=== PATIENT | female | born 1970 | race Caucasian/White ===

== ENCOUNTER 2020-09-14 09:57 | Outpatient (REF) | payer OTHER, SELFPAY ==
[2020-09-14 11:16] LABS: Anion Gap 11 (12-20); Blood Urea Nitrogen 10 mg/dL (9-16); Carbon Dioxide 27 mmol/L (22-29); Chloride 108 mmol/L (96-108); Estimated Glomerular Filt Rate > 60; Glucose Random 96 mg/dL (60-115); Potassium 4.2 mmol/L (3.3-5.1); Sodium 142 mmol/L (135-145)
[2020-09-14 11:26] LABS: T4 Thyroxine 7.9 ug/dL (4.5-12.0); Thyroid Stimulating Hormone 2.66 uIU/mL (0.32-4.0)
[2020-09-14 11:38] LABS: Erythrocyte Sedimentation Rate 3 MM/HR (0-20)
== END 2020-09-14 09:58 | disposition home or self-care (01) ==
LOC: HO.LAB 09:57
PROVIDERS: PCP Internal Medicine; Visit Provider Psychiatry & Neurology Neurology
DX: G43.909 Migraine, unspecified, not intractable, without status migrainosus (principal)
CPT/HCPCS: 36415; 80051; 82565; 82947; 84436; 84443; 84520; 85652

== ENCOUNTER 2021-02-05 13:12 | Outpatient (REF) | payer OTHER, SELFPAY ==
--- NOTE | ~2021-02-05 | XR_ITS ---
EXAMINATION: XR ANKLE, LEFT CLINICAL INFORMATION: Ligament sprain. COMPARISON: None TECHNIQUE: AP, lateral, and mortise views of the left ankle. FINDINGS: The bones and soft tissues are normal. No fracture. Alignment is anatomic. Joint spaces are maintained. No joint effusion. There is a small calcaneal heel enthesophyte. XR/XR ankle LT min 3V IMPRESSION: Small calcaneal enthesophyte. Otherwise unremarkable left ankle exam.
== END 2021-02-05 13:13 | disposition home or self-care (01) ==
LOC: HO.HMGCX 13:12
PROVIDERS: PCP Internal Medicine; Visit Provider Physician Assistant Medical
DX: Z13.89 Encounter for screening for other disorder (principal)
CPT/HCPCS: 73610

== ENCOUNTER 2021-03-30 10:04 | Outpatient (REF) | payer OTHER, SELFPAY ==
[2021-03-30 11:35] LABS: MANUAL DIFF FLAG NO
[2021-03-30 11:42] LABS: Basophils Percent Auto 0.2 % (0-2); Eosinophils Percent Auto 0.6 % (0-4); Hematocrit 44.3 % (37-47); Hemoglobin 14.6 g/dl (12.0-16.0); Imm Gran Abs Auto 0.01 X10*3/uL (0.00-0.03); Imm Gran Pct Auto 0.2 % (0.0-0.4); Lymphocytes Absolute Auto 1.2 X10*3/uL (1.2-4.9); Lymphocytes Percent Auto 23.9 % (20-40); Mean Corpuscular Hemoglobin 29.6 pg (27.0-33.0); Mean Corpuscular Volume 89.9 fL (80-98); Mean Platelet Volume 11.6 fL (9.4-12.3); Monocytes Absolute Auto 0.5 X10*3/uL (0.1-1.2); Monocytes Percent Auto 9.5 % (2-11); Neutrophils Absolute Auto 3.4 X10*3/uL (2.0-8.3); Neutrophils Percent Auto 65.6 % (45-73); Platelet Count 201 X10*3/uL (160-400); Red Blood Count 4.93 X10*6/uL (4.20-5.50); Red Cell Distribution Width 12.6 % (11.0-16.0); White Blood Count 5.1 X10*3/uL (4.8-10.8)
== END 2021-03-30 10:05 | disposition home or self-care (01) ==
LOC: HO.LAB 10:04
PROVIDERS: PCP Internal Medicine; Visit Provider Internal Medicine Pulmonary Disease
DX: J45.909 Unspecified asthma, uncomplicated (principal); Z91.09 Other allergy status, other than to drugs and biological substances
CPT/HCPCS: 36415; 82785; 85025; 86003; 99202

== ENCOUNTER 2021-04-14 07:34 | Outpatient (REF) | payer OTHER, SELFPAY ==
--- NOTE | 2021-04-14 17:06 | PFT_ITS ---
INDICATION: Asthma. SPIROMETRY: The FEV1 to FVC 88% with an FEV1 of 3.6 L, which is 122% predicted and an FVC of 110% predicted. No significant response to bronchodilators noted. Maximum voluntary ventilation 179% predicted. LUNG VOLUMES: Total lung capacity 111% predicted. DIFFUSION CAPACITY: DLCO 92% predicted. Flow volume loop appears to be normal. COMPARISONS: None. INTERPRETATION: No obstructive nor restrictive ventilatory defects identified. No significant response to bronchodilators noted. Normal lung volumes. Normal maximum voluntary ventilation. Normal diffusion capacity. These are consistent with normal lung mechanics. If asthma is in the differential, methacholine challenge may be helpful in assessing for hyper-reactive airways, otherwise clinical correlation warranted. Blake Dee MD MR/MODL / [id number]
== END 2021-04-14 07:35 | disposition home or self-care (01) ==
LOC: HO.RESP 07:34
PROVIDERS: PCP Internal Medicine; Visit Provider Internal Medicine Pulmonary Disease
DX: J45.909 Unspecified asthma, uncomplicated (principal)
CPT/HCPCS: 94060; 94727; 94729

== ENCOUNTER → 2021-04-26 09:48 | Outpatient (BNVA) | payer OTHER, SELFPAY | PROVIDERS: PCP Internal Medicine; Visit Provider Internal Medicine Pulmonary Disease | DX: J45.909 Unspecified asthma, uncomplicated (principal) | CPT/HCPCS: 99212 ==

== ENCOUNTER 2021-10-10 04:26 | Emergency (ER) | payer OTHER, SELFPAY ==
[2021-10-10 04:44] VITALS: BP 187/96; PULSE 110; RESP 20; TEMP 36.4; O2SAT 98; BMI 21.4
[2021-10-10 04:45] VITALS: BP 165/94; PULSE 98; RESP 18; TEMP 37.1; O2SAT 100
--- NOTE | 2021-10-10 05:24 | ED.GENADULT ---
HPI - General Adult General Chief complaint: Skin/Abscess/Foreign Body Stated complaint: L leg pain, abnormal spot on leg Time Seen by Provider: 10/10/21 05:24 Source: patient and family (Mother) Mode of arrival: ambulatory History of Present Illness HPI narrative: 51-year-old female who presents with significant concerns regarding ?bugs, parasites? in her house that she states she is concerned have infected her. She describes tingling and crawling as well as sometimes itching in her scalp in her ears and her butt. Patient also complaints of squirrels as well as neighbors. She states she is currently being seen by a therapist. Related Data Home Medications Medication Instructions Recorded Confirmed norethindrone 1 mg-ethinyl 1 tab PO DAILY 04/19/20 08/04/21 estradiol 10 mcg (24)-iron 10 mcg(2) tablet (Lo Loestrin Fe) ondansetron HCl 4 mg tablet 4 mg PO Q8H 04/19/20 08/04/21 polyethylene glycol 3350 17 17 g PO DAILY 04/19/20 08/04/21 gram/dose oral powder (Miralax) sumatriptan succinate 100 mg tablet See Rx Instructions PO .COMPLEX 04/19/20 08/04/21 dextroamphetamine-amphetamine ER 60 mg PO DAILY cap 02/01/21 08/04/21 20 mg 24hr capsule,extend release diclofenac sodium 1 % topical gel 2 g TOPICAL QID 04/01/21 08/04/21 (Arthritis Pain (diclofenac)) Previous Rx's Medication Instructions Recorded triamcinolone acetonide 0.1 % 1 appl TOPICAL TID #454 g 08/19/21 topical cream Allergies Allergy/AdvReac Type Severity Reaction Status Date / Time No Known Allergies Allergy Verified 10/10/21 04:49 Review of Systems Review of Systems: Pertinent positives and negatives as stated in HPI 10 point review of systems is otherwise negative. [facility] Past Medical History Source: nursing notes reviewed Medical History Annual physical exam Anxiety Asthma Attention deficit hyperactivity disorder Degenerative disc disease, lumbar Depression Eczema Hypoglycemia Irritable bowel syndrome with constipation Left ankle swelling Migraine Normal Pap smear PTSD (post-traumatic stress disorder) Rash Vitamin B12 deficiency Vitamin D deficiency Surgical History H/O colonoscopy History of tonsillectomy Family History Family History Father No problems noted. Mother No problems noted. Social History Social History Household Members Other:: lives with children 17 and 21-year-old, on disability for PTSD Housing: Apartment Patient Tobacco Use Status: Never used Tobacco e-Cigarette/Vaping Use: Never Used Advance Directives: No Patient : No Current occupational status: disabled Physical Exam ED Vital Signs: Vital Signs - 24 hr 10/10/21 04:44 10/10/21 04:45 Temperature 97.6 F 98.8 F Pulse Rate 110 H 98 Respiratory Rate 20 18 Blood Pressure 187/96 H 165/94 H Pulse Oximetry 98 100 BMI result Body Mass Index 21.4 VITAL SIGNS: Reviewed. GENERAL: Well developed, well nourished, anxiety distress. HEAD: Normocephalic/atraumatic EYES: PERRLA, EOMI EARS: Ext canals without abnormality OROPHARYNX: no oral lesions noted, posterior pharynx clear and non-erythematous without noted tonsillar enlargement/erythema/exudates NECK: Supple, no adenopathy LUNGS: Normal breath sounds. No adventitious sounds or accessory muscle use. SpO2<98> CARDIOVASCULAR: Regular rate and rhythm without noted murmurs ABDOMEN: Soft, non-tender, non-distended with bowel sounds. MUSCULOSKELETAL: No tenderness, deformities, or effusions noted on gross inspection. EXTREMITIES: No cyanosis, clubbing or edema multiple, multiple scratch like abrasions to extremities without evidence of erythema/induration/bleeding SKIN: Inspection of the skin reveals no rashes NEUROLOGIC: Alert and oriented x 4. Strength and sensation to light touch were grossly intact x 4. Course Course Course Narrative: 51-year-old female with history and clinical presentation consistent with anxiety and had a concerned regarding bugs within her home, but then states that she does not want to inform her landlord, she denies any suicidal homicidal ideation. She continues to insist that she has bug bites that have infected her and that they are inside of her body. There is no evidence of such an infestation at this time. Thankfully the mother is at bedside and is actively involved with the daughter, but the daughter really is not listening to either her mother or myself and is struggling with bleeding that there is a solution to her concerns regarding the bugs. She is not suicidal or homicidal and denies hearing any voices. Patient is otherwise discharged home in stable condition, and her mother states that she will take care of things and they both understand that they should follow up with the primary care provider in the morning and pursue contact with extermination services as well as notifying the landlord. Discharge Plan Discharge Clinical Impression: Paresthesias Patient Disposition: Home, Self-Care Additional Instructions: 1. Resume all home medications as prescribed. 2. I strongly recommend that you consider discussion with the health department regarding your concerns about your living condition. 3. Please consider discussion with your therapist regarding side effects from the medications that you are on as well. 4. Below is a list of a recommendations for testing for your concerns regarding worms and parasites that you can discuss with your primary care provider. Stool Sample for ova and parasite SerologyThis test is used to look for antibodies or for parasite antigens produced when the body is infected with a parasite and the immune system is trying to fight off the invader.This test is done by your health care provider taking a blood sample and sending it to a lab. Blood smearThis test is used to look for parasites that are found in the blood. By looking at a blood smear under a microscope, parasitic diseases such as filariasis, malaria, or babesiosis, can be diagnosed.This test is done by placing a drop of blood on a microscope slide. The slide is then stained and examined under a microscope. Return to the ER for worsening symptoms. Prescriptions: No Action triamcinolone acetonide 0.1 % cream 1 appl topical TID Qty: 454 4RF polyethylene glycol 3350 [Miralax] 17 gram/dose powder 17 g PO DAILY 0RF sumatriptan succinate 100 mg tablet See Rx Instructions PO .COMPLEX 0RF Rx Instructions: take 1 tab at onset of headache; if no relief, may repeat 1 tab after at least 2 hrs; max = 2 tabs/24 hrs PO Lo Loestrin Fe 1 mg-10 mcg (24)/10 mcg (2) tablet 1 tab PO DAILY 0RF ondansetron HCl 4 mg tablet 4 mg PO Q8H 0RF dextroamphetamine-amphetamine 20 mg capsule,extended release 24hr 60 mg PO DAILY 0RF diclofenac sodium [Arthritis Pain (diclofenac)] 1 % gel 2 g topical QID 0RF Rx Instructions: apply to single elbow, wrist or hand; for hand includes palm/fingers/back of hand Interventions: ED Discharge Assessment Last Done: 10/10/21 06:34 Discharge Date/Time: 10/10/21 06:34
== END 2021-10-10 06:34 | disposition home or self-care (01) ==
PROVIDERS: Emergency Provider Student in an Organized Health Care Education/Training Program
DX: R20.2 Paresthesia of skin (principal)
CPT/HCPCS: 99282; 99283

== ENCOUNTER 2022-02-07 12:14 | Outpatient (REF) | payer OTHER, SELFPAY ==
[2022-02-07 12:28] LABS: MANUAL DIFF FLAG NO
[2022-02-07 12:46] LABS: Basophils Percent Auto 0.7 % (0-2); Eosinophils Absolute Auto 0.1 X10*3/uL (0.0-0.4); Eosinophils Percent Auto 1.2 % (0-4); Hematocrit 43.3 % (37.0-47.0); Hemoglobin 14.7 g/dl (12.0-16.0); Imm Gran Abs Auto 0.03 X10*3/uL (0.00-0.03); Imm Gran Pct Auto 0.7 % (0.0-0.4); Lymphocytes Absolute Auto 1.1 X10*3/uL (1.2-4.9); Lymphocytes Percent Auto 25.9 % (20-40); Mean Corpuscular HGB Conc 33.9 g/dl (31.0-35.0); Mean Corpuscular Hemoglobin 29.9 pg (27.0-33.0); Mean Corpuscular Volume 88.2 fL (80.0-98.0); Mean Platelet Volume 11.1 fL (9.4-12.3); Monocytes Absolute Auto 0.4 X10*3/uL (0.1-1.2); Monocytes Percent Auto 9.4 % (2-11); Neutrophils Absolute Auto 2.6 x10*3/uL (2.0-8.3); Neutrophils Percent Auto 62.1 % (45-73); Platelet Count 165 X10*3/uL (160-400); Red Blood Count 4.91 X10*6/uL (4.20-5.50); Red Cell Distribution Width 12.8 % (11.0-16.0); White Blood Count 4.3 X10*3/uL (4.8-10.8)
== END 2022-02-07 12:15 | disposition home or self-care (01) ==
LOC: HO.LAB 12:14
PROVIDERS: PCP Internal Medicine; Visit Provider Internal Medicine Pulmonary Disease
DX: Z91.09 Other allergy status, other than to drugs and biological substances (principal); R05.9 Cough, unspecified
CPT/HCPCS: 36415; 82785; 85025; 86003; 99212

== ENCOUNTER 2022-02-27 15:26 | Outpatient (REF) | payer OTHER, SELFPAY ==
--- NOTE | 2022-02-27 17:22 | PFT_ITS ---
BASE LINE SPIROMETRY : Forced vital capacity 108%, FEV1 117%, [id number] 155%. The spirometry findings are normal. No evidence of obstructive airway disorder. Resting O2 saturation was normal. MD TYSON Gregorio/CADY / [id number] MTDD
== END 2022-02-27 15:27 | disposition home or self-care (01) ==
LOC: HO.RESP 15:26
PROVIDERS: PCP Internal Medicine; Visit Provider Internal Medicine Pulmonary Disease
DX: R05.9 Cough, unspecified (principal)
CPT/HCPCS: 94070; J7674

== ENCOUNTER → 2022-03-10 09:49 | Outpatient (BNVA) | payer OTHER, SELFPAY | PROVIDERS: PCP Internal Medicine; Visit Provider Internal Medicine Pulmonary Disease | DX: R05.9 Cough, unspecified (principal) | CPT/HCPCS: 99212 ==

== ENCOUNTER 2022-03-15 12:26 | Outpatient (REF) | payer OTHER, SELFPAY ==
--- NOTE | ~2022-03-15 | XR_ITS ---
EXAMINATION: XR HAND, RIGHT CLINICAL INFORMATION: Pain COMPARISON: None TECHNIQUE: PA, lateral, and oblique views of the right hand. FINDINGS: No acute fracture or dislocation. Small marginal osteophytes of the first metacarpophalangeal joint. There are calcifications along the medial aspect of the fifth metacarpal phalangeal joint, likely chronic and degenerative in nature. No radiopaque foreign bodies. XR/XR hand RT min 3V IMPRESSION: No acute fracture or dislocation. Degenerative changes as described.
== END 2022-03-15 12:27 | disposition home or self-care (01) ==
LOC: HO.HMGCX 12:26
PROVIDERS: PCP Internal Medicine; Visit Provider Nurse Practitioner Family
DX: M79.641 Pain in right hand (principal)
CPT/HCPCS: 73130

== ENCOUNTER → 2022-03-29 09:12 | Outpatient (BNVA) | payer OTHER, SELFPAY | PROVIDERS: PCP Internal Medicine; Visit Provider Student in an Organized Health Care Education/Training Program | DX: M25.541 Pain in joints of right hand (principal); M79.641 Pain in right hand; M25.441 Effusion, right hand; R59.1 Generalized enlarged lymph nodes; R53.83 Other fatigue; M76.62 Achilles tendinitis, left leg | CPT/HCPCS: 99202 ==

== ENCOUNTER 2022-03-29 10:42 | Outpatient (REF) | payer OTHER, SELFPAY ==
[2022-03-29 13:35] LABS: MANUAL DIFF FLAG NO
[2022-03-29 13:44] LABS: Basophils Percent Auto 0.4 % (0-2); Eosinophils Absolute Auto 0.1 X10*3/uL (0.0-0.4); Eosinophils Percent Auto 1.2 % (0-4); Hematocrit 42.4 % (37.0-47.0); Hemoglobin 14.4 g/dl (12.0-16.0); Imm Gran Abs Auto 0.01 X10*3/uL (0.00-0.03); Imm Gran Pct Auto 0.2 % (0.0-0.4); Lymphocytes Absolute Auto 1.1 X10*3/uL (1.2-4.9); Lymphocytes Percent Auto 20.8 % (20-40); Mean Corpuscular Hemoglobin 30.1 pg (27.0-33.0); Mean Corpuscular Volume 88.5 fL (80.0-98.0); Mean Platelet Volume 11.8 fL (9.4-12.3); Monocytes Absolute Auto 0.4 X10*3/uL (0.1-1.2); Monocytes Percent Auto 7.3 % (2-11); Neutrophils Absolute Auto 3.6 x10*3/uL (2.0-8.3); Neutrophils Percent Auto 70.1 % (45-73); Platelet Count 178 X10*3/uL (160-400); Red Blood Count 4.79 X10*6/uL (4.20-5.50); Red Cell Distribution Width 12.6 % (11.0-16.0); White Blood Count 5.1 X10*3/uL (4.8-10.8)
[2022-03-29 14:01] LABS: Alanine Aminotransferase 18 U/L (0-31); Albumin Level 4.3 g/dL (3.5-5.0); Alkaline Phosphatase 93 U/L (39-117); Anion Gap 14 (12-20); Aspartate Amino Transferase 14 U/L (5-31); Bilirubin Total 0.5 mg/dL (0.0-1.0); Blood Urea Nitrogen 9 mg/dL (9-16); Calcium 9.6 mg/dL (8.4-10.2); Carbon Dioxide 28 mmol/L (22-29); Chloride 104 mmol/L (96-108); Estimated Glomerular Filt Rate > 60; Glucose Random 106 mg/dL (60-115); Potassium 4.6 mmol/L (3.3-5.1); Rheumatoid Factor < 15.0 IU/mL (<15.0); Sodium 141 mmol/L (135-145); Total Protein 6.9 g/dL (6.5-8.0); Uric Acid 3.8 mg/dL (2.4-5.7)
[2022-03-29 14:22] LABS: Thyroid Stimulating Hormone 3.65 uIU/mL (0.32-4.0)
[2022-04-01 23:11] LABS: Prot Elec - Alpha1 0.3 g/dL (0.2-0.3); Prot Elec - Alpha2 0.7 g/dL (0.5-0.9); Prot Elec - Beta 1 0.4 g/dL (0.4-0.6); Prot Elec - Beta 2 0.4 g/dL (0.2-0.5); Prot Elec - Gamma 0.8 g/dL (0.8-1.7); Prot Elec - Total Protein 6.6 g/dL (6.1-8.1)
[2022-04-03 11:56] LABS: HLA B27 Negative (Negative)
[2022-04-03 13:06] LABS: IgA 251 mg/dL (47-310); IgG 941 mg/dL (600-1640); IgM 57 mg/dL (50-300)
[2022-04-03 14:06] LABS: Vitamin D 25-OH, D2 <4 ng/mL; Vitamin D 25-OH, D3 39 ng/mL; Vitamin D 25-OH, Total 39 ng/mL (30-100)
[2022-04-03 17:26] LABS: Cyclic Citrullinated Peptide <16 UNITS
== END 2022-03-29 10:43 | disposition home or self-care (01) ==
LOC: HO.10HDL 10:42
PROVIDERS: Visit Provider Student in an Organized Health Care Education/Training Program
DX: Z13.21 Encounter for screening for nutritional disorder (principal); M25.541 Pain in joints of right hand; M76.62 Achilles tendinitis, left leg; R59.1 Generalized enlarged lymph nodes; R53.83 Other fatigue; R53.1 Weakness
CPT/HCPCS: 36415; 80053; 82306; 82550; 82784; 84165; 84443; 84550; 85025; 86200; 86334; 86431; 86812

== ENCOUNTER 2022-04-14 08:08 | Outpatient (REF) | payer OTHER, SELFPAY ==
--- NOTE | ~2022-04-14 | MR_ITS ---
EXAMINATION: MRI HAND WITHOUT CONTRAST, RIGHT CLINICAL INFORMATION: Right hand pain and swelling. COMPARISON: Right hand radiographs dated 03/15/2022. TECHNIQUE: Multisequence MR imaging of the right hand was obtained without contrast on a high-field strength scanner. FINDINGS: BONE: Increased T2 signal within the distal aspect of the 5th metatarsal as well as within the adjacent 5th proximal phalangeal base. No associated decreased T1 signal. No osseous erosion. No fracture or dislocation. Grossly intact articular cartilage. MUSCLES/TENDONS: The visualized flexor and extensor tendons are intact. Mild fluid within the 5th flexor digitorum tendon sheath consistent mild tenosynovitis. LIGAMENTS: Abnormal signal within the radial and ulnar collateral ligaments at the 5th metacarpophalangeal joint with probable attenuation. SOFT TISSUES: Fifth metacarpophalangeal joint effusion with circumferential soft tissue edema. MR/MR hand RT wo con IMPRESSION: Fifth metacarpal phalangeal joint effusion with marrow edema in the 5th metacarpal head and base of the fifth proximal phalanx as well as circumferential soft tissue edema. Additionally there is attenuation and abnormal signal of the collateral ligaments. Findings could represent an infectious or inflammatory arthropathy. Small calcifications on the prior radiographs could indicate gout arthritis in the appropriate setting. Alternatively, findings could indicate posttraumatic changes in the setting of recent injury. Mild 5th flexor tenosynovitis without a transverse tendon tear or tendon retraction.
== END 2022-04-14 08:09 | disposition home or self-care (01) ==
LOC: HO.MRI 08:08
PROVIDERS: Visit Provider Student in an Organized Health Care Education/Training Program
DX: M25.541 Pain in joints of right hand (principal)
CPT/HCPCS: 73218

== ENCOUNTER → 2022-04-19 09:07 | Outpatient (BNVA) | payer OTHER, SELFPAY | PROVIDERS: PCP Internal Medicine; Visit Provider Student in an Organized Health Care Education/Training Program | DX: L40.50 Arthropathic psoriasis, unspecified (principal); R59.1 Generalized enlarged lymph nodes | CPT/HCPCS: 99212 ==

== ENCOUNTER 2022-04-20 11:32 | Outpatient (REF) | payer OTHER, SELFPAY ==
--- NOTE | ~2022-04-20 | XR_ITS ---
EXAMINATION: XR SACROILIAC JOINTS CLINICAL INFORMATION: Low back pain and left hand pain COMPARISON: None TECHNIQUE: 3 views of the sacroiliac joints. Left hand 4 views FINDINGS: SI joints no visible fracture, dislocation or bony abnormality. The SI joints are symmetrical. There are 2 cages at the L5-S1 disc level for fusion. No aggressive lytic or sclerotic process seen involving the pelvic bones. Left hand/wrist: There is no visible fracture, dislocation or subluxation. No bony erosive changes. The soft tissues are normal. XR/XR sacroiliac joint min 3V IMPRESSION: 1. Unremarkable SI joints. 2. There are 2 cages at the L5-S1 disc level for fusion. 3. Unremarkable left hand/wrist exam
--- NOTE | ~2022-04-20 | XR_ITS ---
EXAMINATION: XR SACROILIAC JOINTS CLINICAL INFORMATION: Low back pain and left hand pain COMPARISON: None TECHNIQUE: 3 views of the sacroiliac joints. Left hand 4 views FINDINGS: SI joints no visible fracture, dislocation or bony abnormality. The SI joints are symmetrical. There are 2 cages at the L5-S1 disc level for fusion. No aggressive lytic or sclerotic process seen involving the pelvic bones. Left hand/wrist: There is no visible fracture, dislocation or subluxation. No bony erosive changes. The soft tissues are normal. XR/XR hand wrist LT IMPRESSION: 1. Unremarkable SI joints. 2. There are 2 cages at the L5-S1 disc level for fusion. 3. Unremarkable left hand/wrist exam
[2022-04-20 12:32] LABS: MANUAL DIFF FLAG NO
[2022-04-20 12:52] LABS: Basophils Percent Auto 0.1 % (0-2); Hemoglobin 15.9 g/dl (12.0-16.0); Imm Gran Abs Auto 0.03 X10*3/uL (0.00-0.03); Imm Gran Pct Auto 0.3 % (0.0-0.4); Lymphocytes Absolute Auto 0.7 X10*3/uL (1.2-4.9); Lymphocytes Percent Auto 7.4 % (20-40); Mean Corpuscular HGB Conc 34.6 g/dl (31.0-35.0); Mean Corpuscular Hemoglobin 30.2 pg (27.0-33.0); Mean Corpuscular Volume 87.5 fL (80.0-98.0); Monocytes Absolute Auto 0.5 X10*3/uL (0.1-1.2); Monocytes Percent Auto 5.4 % (2-11); Neutrophils Absolute Auto 7.9 x10*3/uL (2.0-8.3); Neutrophils Percent Auto 86.8 % (45-73); Platelet Count 197 X10*3/uL (160-400); Red Blood Count 5.26 X10*6/uL (4.20-5.50); Red Cell Distribution Width 12.4 % (11.0-16.0); White Blood Count 9.1 X10*3/uL (4.8-10.8)
[2022-04-20 13:31] LABS: Alanine Aminotransferase 17 U/L (0-31); Albumin Level 4.8 g/dL (3.5-5.0); Alkaline Phosphatase 99 U/L (39-117); Anion Gap 16 (12-20); Aspartate Amino Transferase 14 U/L (5-31); Bilirubin Total 0.8 mg/dL (0.0-1.0); Blood Urea Nitrogen 12 mg/dL (9-16); C Reactive Protein 0.12 mg/dL (< or = 0.50); Calcium 10.3 mg/dL (8.4-10.2); Carbon Dioxide 26 mmol/L (22-29); Chloride 103 mmol/L (96-108); Estimated Glomerular Filt Rate > 60; Glucose Random 101 mg/dL (60-115); Potassium 4.3 mmol/L (3.3-5.1); Sodium 141 mmol/L (135-145); Total Protein 7.7 g/dL (6.5-8.0)
[2022-04-20 13:39] LABS: Erythrocyte Sedimentation Rate 4 MM/HR (0-20)
[2022-04-21 08:29] LABS: HBS Num1 128.91 mIU/mL (0-7.99); HBc Num1 0.08 S/CO (0.00-0.79); HBsAGNum1 0.23 S/CO (0.00-0.99); HIV AB/AG Nonreactive (Nonreactive); HIV Num 1 0.08 S/CO (0.00-0.99); Hepatitis A Antibody IgM 0.22 Index (0-0.79); Hepatitis B Core Antibody Nonreactive (Nonreactive); Hepatitis B Surface Antigen Negative (Negative); ~HepC Num1 0.18 S/CO (0.00-0.79); ~Hepatitis A Antibody IgM Nonreactive (Nonreactive); ~Hepatitis B Surface Antibody REACTIVE (Nonreactive); ~Hepatitis C Antibody Nonreactive (Nonreactive)
[2022-04-23 00:47] LABS: TS Negative Control Passed; TS Panel A 6; TS Panel B 7; TS Positive Control Passed; TSpotTB Borderline (Negative)
[2022-04-24 18:16] LABS: Immunoglobulin E 11 kU/L (<OR=114)
[2022-04-25 12:06] LABS: Anti Nuclear Antibody Screen NEGATIVE (NEGATIVE)
== END 2022-04-20 11:33 | disposition home or self-care (01) ==
LOC: HO.XRAY 11:32
PROVIDERS: Internal Medicine Pulmonary Disease; PCP Internal Medicine; Visit Provider Student in an Organized Health Care Education/Training Program
DX: M54.50 Low back pain, unspecified (principal); M25.541 Pain in joints of right hand; L40.50 Arthropathic psoriasis, unspecified; Z91.09 Other allergy status, other than to drugs and biological substances; Z11.59 Encounter for screening for other viral diseases; Z11.4 Encounter for screening for human immunodeficiency virus [HIV]; Z11.7 Encounter for testing for latent tuberculosis infection
CPT/HCPCS: 36415; 72202; 73110; 73130; 80053; 82785; 85025; 85652; 86038; 86039; 86140; 86481; 86704; 86706; 86709; 86803; 87340; 87389

== ENCOUNTER → 2022-05-19 10:16 | Outpatient (BNVA) | payer OTHER, SELFPAY | PROVIDERS: PCP Internal Medicine; Referring Provider Internal Medicine; Visit Provider Student in an Organized Health Care Education/Training Program | DX: L40.50 Arthropathic psoriasis, unspecified (principal); M79.7 Fibromyalgia | CPT/HCPCS: 99212 ==

== ENCOUNTER 2022-07-18 09:41 | Outpatient (REF) | payer OTHER, SELFPAY ==
--- NOTE | ~2022-07-18 | XR_ITS ---
EXAMINATION: XR HIPS, BILATERAL CLINICAL INFORMATION: Arthritis COMPARISON: SI joints 04/20/2022, CT pelvis 01/24/2017. TECHNIQUE: Each hip is imaged in AP and frog-lateral projections. There are a total of 4 views. FINDINGS: Right: Normal bony mineralization. No fracture, dislocation, destructive process, or arthropathy. No erosive change or chondrocalcinosis. Left: Normal bony mineralization. No fracture, dislocation, destructive process, or arthropathy. No erosive change or chondrocalcinosis. Other: Visualized SI joints are unremarkable. Mild spurring superior pubis, stable. Small benign chronic sclerotic lesion proximal inferior left pubic ramus stable from CT 2017. XR/XR hips CHAVA min 3V IMPRESSION: Unremarkable bilateral hips.
--- NOTE | ~2022-07-18 | XR_ITS ---
EXAMINATION: XR LUMBOSACRAL SPINE CLINICAL INFORMATION: Arthritis COMPARISON: None TECHNIQUE: Three views of the lumbosacral spine. FINDINGS: Interbody fusion cages x2 L5 and S1 appears satisfactory. No subluxation. Mild degenerative disc space narrowing at L4-L5. Generalized endplate spurring. No fracture. No focal lesion. XR/XR lumbar spine 2-3V IMPRESSION: Satisfactory fusion hardware. Mild degenerative disc disease at L4-L5.
[2022-07-18 10:46] LABS: MANUAL DIFF FLAG NO
[2022-07-18 11:10] LABS: Basophils Percent Auto 0.5 % (0-2); Eosinophils Percent Auto 0.7 % (0-4); Hematocrit 40.7 % (37.0-47.0); Hemoglobin 13.8 g/dl (12.0-16.0); Imm Gran Abs Auto 0.03 X10*3/uL (0.00-0.03); Imm Gran Pct Auto 0.7 % (0.0-0.4); Lymphocytes Absolute Auto 0.9 X10*3/uL (1.2-4.9); Lymphocytes Percent Auto 22.9 % (20-40); Mean Corpuscular HGB Conc 33.9 g/dl (31.0-35.0); Mean Corpuscular Hemoglobin 30.7 pg (27.0-33.0); Mean Corpuscular Volume 90.4 fL (80.0-98.0); Mean Platelet Volume 11.7 fL (9.4-12.3); Monocytes Absolute Auto 0.4 X10*3/uL (0.1-1.2); Monocytes Percent Auto 10.5 % (2-11); Neutrophils Absolute Auto 2.6 x10*3/uL (2.0-8.3); Neutrophils Percent Auto 64.7 % (45-73); Platelet Count 145 X10*3/uL (160-400); Red Cell Distribution Width 13.2 % (11.0-16.0)
[2022-07-18 11:39] LABS: Erythrocyte Sedimentation Rate 2 MM/HR (0-20)
== END 2022-07-18 09:42 | disposition home or self-care (01) ==
LOC: HO.XRAY 09:41
PROVIDERS: PCP Internal Medicine; Visit Provider Psychiatry & Neurology Neurology
DX: M19.90 Unspecified osteoarthritis, unspecified site (principal); M79.7 Fibromyalgia
CPT/HCPCS: 36415; 72100; 73522; 85025; 85652

== ENCOUNTER 2022-10-24 01:30 | Emergency (ER) | payer OTHER, SELFPAY ==
--- NOTE | ~2022-10-24 | US_ITS ---
EXAMINATION: US ABDOMEN LIMITED CLINICAL INFORMATION: Right upper quadrant pain with history of gallstones. COMPARISON: CT 01/24/2017 TECHNIQUE: Real-time imaging of the right upper quadrant abdominal viscera. FINDINGS: PANCREAS: The visualized proximal portion of the pancreas is unremarkable. The distal portion is obscured secondary to overlying bowel gas. LIVER: The liver is normal in size. The liver contour is normal. Parenchymal echogenicity is normal. No focal hepatic lesion. There is no intrahepatic biliary duct dilatation seen. GALLBLADDER: There are 2 prominent gallstones identified, measuring up to 2.3 cm and 2.5 cm. Small amount of gallbladder debris is also noted. Gallbladder wall thickness is at the upper limits of normal. No appreciable pericholecystic fluid. Right upper quadrant tenderness was reported during the exam. COMMON BILE DUCT: Normal in caliber measuring 0.2 cm in diameter. RIGHT KIDNEY: No hydronephrosis. No renal calculi or focal parenchymal lesions. The kidney measures 11.4 cm in maximum dimension. FREE FLUID: None. US/US abdomen limited IMPRESSION: Cholelithiasis. Though there is no significant wall thickening or pericholecystic fluid, right upper quadrant tenderness was reported during the exam. If there is clinical concern for acute cholecystitis, assessment with nuclear medicine hepatobiliary scan may be helpful.
[2022-10-24 02:02] VITALS: BP 128/89; PULSE 83; RESP 18; TEMP 36.6; O2SAT 98; BMI 21.6
--- NOTE | 2022-10-24 02:16 | ED.ABDPAIN ---
HPI - Abdominal Pain General Chief Complaint: Abdominal Pain Stated Complaint: gallstones Time Seen by Provider: 10/24/22 02:15 Source: patient Mode of arrival: ambulatory Limitations: no limitations History of Present Illness HPI narrative: Patient with History of gallstone with no significant pain in the past noticed pain in the right upper and right flank area since yesterday evening after supper with nausea no fever no chills no urinary complaints patient had gallstone but they are large in size and ever had any problems Related Data Home Medications Medication Instructions Recorded Confirmed norethindrone 1 mg-ethinyl 1 tab PO DAILY 04/19/20 05/19/22 estradiol 10 mcg (24)-iron 10 mcg(2) tablet (Lo Loestrin Fe) sumatriptan succinate 100 mg tablet See Rx Instructions PO .COMPLEX 04/19/20 05/19/22 dextroamphetamine-amphetamine ER 60 mg PO DAILY 02/01/21 05/19/22 20 mg 24hr capsule,extend release diclofenac sodium 1 % topical gel 2 g topical QID 04/01/21 05/19/22 (Arthritis Pain (diclofenac)) ondansetron HCl 4 mg tablet 4 mg PO Q8H PRN 03/29/22 05/19/22 Previous Rx's Medication Instructions Recorded sulfasalazine 500 mg tablet 0.5 g PO .COMPLEX #120 tabs 05/19/22 meloxicam 15 mg tablet 15 mg PO DAILY #30 tabs 07/21/22 ondansetron 4 mg disintegrating 4 mg PO Q6-8H PRN nausea and 10/24/22 tablet vomiting #7 tabs oxycodone 5 mg tablet 5 mg PO Q6H PRN pain #20 tabs 10/24/22 Allergies Allergy/AdvReac Type Severity Reaction Status Date / Time morphine Allergy itchy Verified 10/24/22 02:07 Review of Systems Review of Systems Yes all other systems are reviewed and are negative PMFSH Past Medical History Medical History Annual physical exam Anxiety Attention deficit hyperactivity disorder Degenerative disc disease, lumbar Depression Eczema Hypoglycemia Irritable bowel syndrome with constipation Left ankle swelling Migraine Normal Pap smear PTSD (post-traumatic stress disorder) Rash Vitamin B12 deficiency Vitamin D deficiency Surgical History H/O colonoscopy History of tonsillectomy Family History Family History Father No problems noted. Mother No problems noted. Social History Social History Household Members Other:: lives with children 17 and 21-year-old, on disability for PTSD Housing: Apartment Patient Tobacco Use Status: Never used Tobacco e-Cigarette/Vaping Use: Never Used Advance Directives: No Advance Directives Information Provided: Yes Current occupational status: disabled Cognitive needs: No Hearing needs: No Vision needs: Yes Physical Exam ED Vital Signs: Vital Signs - 24 hr 10/24/22 02:02 Temperature 97.8 F Pulse Rate 83 Respiratory Rate 18 Blood Pressure 128/89 Pulse Oximetry 98 Oxygen Delivery Method Room Air BMI result Body Mass Index 21.6 Appearance: Alert. Oriented X3. No acute distress. Eyes: No pallor it ENT: Pharynx normal. Oral Mucosa moist Neck: Normal inspection. Neck supple. CVS: Normal heart rate and rhythm. Pulses normal. Respiratory: No respiratory distress. Equal air entry bilateral, no wheezing/rales/rhonchi Abdomen: Soft, tenderness right upper quadrant no guarding or rebound tenderness Bowel sounds are present, no mass palpable, no CVA tenderness Skin: Skin warm and dry. Normal skin color. Normal skin turgor. Extremities: No lower extremity edema. No calf tenderness Neuro: Oriented X 3. Medical Decision Making Lab Data MDM Lab Attestation statement: I reviewed the patient's lab results. 10/24/22 02:28 10/24/22 02:28 Labs: Lab Results 10/24/22 10/24/22 10/24/22 Range/Units 02:28 02:28 03:39 WBC 5.7 (4.8-10.8) X10*3/uL RBC 5.03 (4.20-5.50) X10*6/uL Hgb 15.0 (12.0-16.0) g/dl Hct 44.1 (37.0-47.0) % MCV 87.7 (80.0-98.0) fL MCH 29.8 (27.0-33.0) pg MCHC 34.0 (31.0-35.0) g/dl RDW 12.2 (11.0-16.0) % Plt Count 174 (160-400) X10*3/uL MPV 10.7 (9.4-12.3) fL Immature Gran % (Auto) 0.2 (0.0-0.4) % Neut % (Auto) 64.7 (45-73) % Lymph % (Auto) 23.2 (20-40) % [place] % (Auto) 10.3 (2-11) % Eos % (Auto) 1.2 (0-4) % Baso % (Auto) 0.4 (0-2) % Lymph # (Auto) 1.3 (1.2-4.9) X10*3/uL [place] # (Auto) 0.6 (0.1-1.2) X10*3/uL Eos # (Auto) 0.1 (0.0-0.4) X10*3/uL Baso # (Auto) 0.0 (0.0-0.2) X10*3/uL Abs Immat Gran (auto) 0.01 (0.00-0.03) X10*3/uL Absolute Neuts (auto) 3.7 (2.0-8.3) x10*3/uL Absolute Nucleated RBC 0.000 (0.0-0.012) X10*3/uL Nucleated RBC % (auto) 0.0 (0.0-0.2) /100WBC Sodium 139 (135-145) mmol/L Potassium 4.3 (3.3-5.1) mmol/L Chloride 108 (96-108) mmol/L Carbon Dioxide 25 (22-29) mmol/L Anion Gap 10 L (12-20) BUN 11 (9-16) mg/dL Creatinine 0.85 (0.5-1.4) mg/dL Estim Creat Clear Calc 71.2 Estimated GFR > 60 Random Glucose 98 (60-115) mg/dL Calcium 9.1 D (8.4-10.2) mg/dL Total Bilirubin 1.0 (0.0-1.0) mg/dL AST 13 (5-31) U/L ALT 14 (0-31) U/L Alkaline Phosphatase 84 (39-117) U/L Total Protein 6.4 L (6.5-8.0) g/dL Albumin 4.2 (3.5-5.0) g/dL Lipase 28 (8-78) U/L Urine Color Yellow Urine Appearance Clear Urine pH 5.5 (5.0-9.0) Ur Specific Egan <= 1.005 (1.005-1.025) Urine Protein Negative (Neg-Trace) mg/dL Urine Glucose (UA) Negative (Negative) mg/dL Urine Ketones Negative (Negative) mg/dL Urine Blood Negative (Negative) Urine Nitrite Negative (Negative) Ur Leukocyte Esterase Negative (Negative) Radiology Impression Discussion of test interpretation with radiology: I have reviewed the radiologist's reading. Radiologist Impression: [place] [id number] Ultrasound Report Signed Patient: Avelina Hernandez MR#: [id number] : 1970 Acct:[id number] Age/Sex: 52 / F ADM Date: 10/24/22 Loc: .ED Attending Dr: Ordering Physician: Vitor Davenport MD Date of Service: 10/24/22 Procedure(s): US abdomen limited Accession Number(s): [id number] cc: Vitor Davenport MD~ EXAMINATION: US ABDOMEN LIMITED CLINICAL INFORMATION: Right upper quadrant pain with history of gallstones. COMPARISON: CT 01/24/2017 TECHNIQUE: Real-time imaging of the right upper quadrant abdominal viscera. FINDINGS: PANCREAS: The visualized proximal portion of the pancreas is unremarkable. The distal portion is obscured secondary to overlying bowel gas. LIVER: The liver is normal in size. The liver contour is normal. Parenchymal echogenicity is normal. No focal hepatic lesion. There is no intrahepatic biliary duct dilatation seen. GALLBLADDER: There are 2 prominent gallstones identified, measuring up to 2.3 cm and 2.5 cm. Small amount of gallbladder debris is also noted. Gallbladder wall thickness is at the upper limits of normal. No appreciable pericholecystic fluid. Right upper quadrant tenderness was reported during the exam. COMMON BILE DUCT: Normal in caliber measuring 0.2 cm in diameter. RIGHT KIDNEY: No hydronephrosis. No renal calculi or focal parenchymal lesions. The kidney measures 11.4 cm in maximum dimension. FREE FLUID: None. US/US abdomen limited IMPRESSION: Cholelithiasis. Though there is no significant wall thickening or pericholecystic fluid, right upper quadrant tenderness was reported during the exam. If there is clinical concern for acute cholecystitis, assessment with nuclear medicine hepatobiliary scan may be helpful. ? Medications Administered Discontinued Medications Generic Name Dose Route Start Last Admin Trade Name Freq PRN Reason Stop Dose Admin Ondansetron HCl 4 mg 10/24/22 02:27 10/24/22 03:40 Ondansetron Odt 4 Mg Tab.Rapdis TRANSLINGU 10/24/22 02:28 4 mg ONCE ONE Administration Oxycodone HCl 5 mg 10/24/22 02:27 10/24/22 03:40 Oxycodone Hcl Immed Release 5 Mg Tablet PO 10/24/22 02:28 5 mg ONCE ONE Administration Discharge Plan Discharge Clinical Impression: Cholelithiasis Patient Disposition: Home, Self-Care Instructions: Gallstones (ED) Additional Instructions: Avoid fried food You have 2 large stones your gallbladder werre causing the pain Pain medication as prescribed follow-up with surgeon Report to ER if worsening of the pain Prescriptions: New ondansetron 4 mg tablet,disintegrating 4 mg PO Q6-8H PRN (Reason: nausea and vomiting) Qty: 7 0RF oxycodone 5 mg tablet 5 mg PO Q6H PRN (Reason: pain) Qty: 20 0RF Rx Instructions: Partial Fill upon patient request. No Action meloxicam 15 mg tablet 15 mg PO DAILY Qty: 30 1RF sumatriptan succinate 100 mg tablet See Rx Instructions PO .COMPLEX Rx Instructions: take 1 tab at onset of headache; if no relief, may repeat 1 tab after at least 2 hrs; max = 2 tabs/24 hrs PO Lo Loestrin Fe 1 mg-10 mcg (24)/10 mcg (2) tablet 1 tab PO DAILY dextroamphetamine-amphetamine 20 mg capsule,extended release 24hr 60 mg PO DAILY ondansetron HCl 4 mg tablet 4 mg PO Q8H PRN diclofenac sodium [Arthritis Pain (diclofenac)] 1 % gel 2 g topical QID Rx Instructions: apply to single elbow, wrist or hand; for hand includes palm/fingers/back of hand sulfasalazine 500 mg tablet 0.5 g PO .COMPLEX Qty: 120 1RF Rx Instructions: give with food (meal/snack) take 1 tab twice daily for 1 week then 2 tabs in the morning & 1 at night for 1 week then 2 tabs twice daily Referrals: Uvaldo Luna MD [Physician] - 3 days
[2022-10-24 02:32] LABS: MANUAL DIFF FLAG NO
[2022-10-24 02:34] LABS: Basophils Percent Auto 0.4 % (0-2); Eosinophils Absolute Auto 0.1 X10*3/uL (0.0-0.4); Eosinophils Percent Auto 1.2 % (0-4); Hematocrit 44.1 % (37.0-47.0); Imm Gran Abs Auto 0.01 X10*3/uL (0.00-0.03); Imm Gran Pct Auto 0.2 % (0.0-0.4); Lymphocytes Absolute Auto 1.3 X10*3/uL (1.2-4.9); Lymphocytes Percent Auto 23.2 % (20-40); Mean Corpuscular Hemoglobin 29.8 pg (27.0-33.0); Mean Corpuscular Volume 87.7 fL (80.0-98.0); Mean Platelet Volume 10.7 fL (9.4-12.3); Monocytes Absolute Auto 0.6 X10*3/uL (0.1-1.2); Monocytes Percent Auto 10.3 % (2-11); Neutrophils Absolute Auto 3.7 x10*3/uL (2.0-8.3); Neutrophils Percent Auto 64.7 % (45-73); Platelet Count 174 X10*3/uL (160-400); Red Blood Count 5.03 X10*6/uL (4.20-5.50); Red Cell Distribution Width 12.2 % (11.0-16.0); White Blood Count 5.7 X10*3/uL (4.8-10.8)
[2022-10-24 02:50] LABS: Alanine Aminotransferase 14 U/L (0-31); Albumin Level 4.2 g/dL (3.5-5.0); Alkaline Phosphatase 84 U/L (39-117); Anion Gap 10 (12-20); Aspartate Amino Transferase 13 U/L (5-31); Blood Urea Nitrogen 11 mg/dL (9-16); Calcium 9.1 mg/dL (8.4-10.2); Carbon Dioxide 25 mmol/L (22-29); Chloride 108 mmol/L (96-108); Creatinine Clr Calc Pharmacy 71.2; Estimated Glomerular Filt Rate > 60; Glucose Random 98 mg/dL (60-115); Lipase 28 U/L (8-78); Potassium 4.3 mmol/L (3.3-5.1); Sodium 139 mmol/L (135-145); Total Protein 6.4 g/dL (6.5-8.0)
[2022-10-24] MEDS: Ondansetron ODT 4 MG TAB.RAPDIS TRANSLINGU (03:40)
[2022-10-24] MEDS: oxyCODONE HCl Immed Release 5 MG TABLET PO (03:40)
[2022-10-24 03:48] LABS: Appearance Urine Clear; Color Urine Yellow; Glucose Urine UA Negative (Negative); Leukocyte Esterase Urine Negative (Negative); Nitrite Urine Negative (Negative); PH 5.5 (5.0-9.0); Specific Gravity - Urine <= 1.005 (1.005-1.025); Urine Blood Negative (Negative); Urine Ketones Negative (Negative); Urine Protein Negative (Neg-Trace)
--- NOTE | 2022-10-24 05:26 | PC.NURSE ---
discharge pt for Rn Buck, Discharge Reviewed with pt, pt verbalized understanding, No sign of distress at discharge.
== END 2022-10-24 05:29 | disposition home or self-care (01) ==
PROVIDERS: Emergency Provider Internal Medicine
DX: K80.20 Calculus of gallbladder without cholecystitis without obstruction (principal); R10.11 Right upper quadrant pain; Z79.899 Other long term (current) drug therapy
CPT/HCPCS: 36415; 76705; 80053; 81003; 83690; 85025; 99283; 99284

== ENCOUNTER 2022-10-30 11:18 | Outpatient (REF) | payer OTHER, SELFPAY ==
[2022-10-30 11:42] LABS: MANUAL DIFF FLAG NO
[2022-10-30 12:45] LABS: Basophils Percent Auto 0.5 % (0-2); Eosinophils Absolute Auto 0.1 X10*3/uL (0.0-0.4); Eosinophils Percent Auto 1.4 % (0-4); Hematocrit 43.6 % (37.0-47.0); Hemoglobin 14.6 g/dl (12.0-16.0); Imm Gran Abs Auto 0.01 X10*3/uL (0.00-0.03); Imm Gran Pct Auto 0.2 % (0.0-0.4); Lymphocytes Absolute Auto 1.2 X10*3/uL (1.2-4.9); Lymphocytes Percent Auto 27.9 % (20-40); Mean Corpuscular HGB Conc 33.5 g/dl (31.0-35.0); Mean Corpuscular Hemoglobin 29.7 pg (27.0-33.0); Mean Corpuscular Volume 88.8 fL (80.0-98.0); Mean Platelet Volume 12.2 fL (9.4-12.3); Monocytes Absolute Auto 0.4 X10*3/uL (0.1-1.2); Monocytes Percent Auto 8.5 % (2-11); Neutrophils Absolute Auto 2.6 x10*3/uL (2.0-8.3); Neutrophils Percent Auto 61.5 % (45-73); Platelet Count 165 X10*3/uL (160-400); Red Blood Count 4.91 X10*6/uL (4.20-5.50); White Blood Count 4.3 X10*3/uL (4.8-10.8)
[2022-10-30 13:30] LABS: Erythrocyte Sedimentation Rate 3 MM/HR (0-20)
[2022-10-30 13:56] LABS: Alanine Aminotransferase 15 U/L (0-31); Albumin Level 4.2 g/dL (3.5-5.0); Alkaline Phosphatase 83 U/L (39-117); Anion Gap 10 (12-20); Aspartate Amino Transferase 14 U/L (5-31); Bilirubin Total 0.8 mg/dL (0.0-1.0); Blood Urea Nitrogen 10 mg/dL (9-16); C Reactive Protein < 0.04 mg/dL (< or = 0.50); Calcium 9.2 mg/dL (8.4-10.2); Carbon Dioxide 29 mmol/L (22-29); Chloride 107 mmol/L (96-108); Estimated Glomerular Filt Rate > 60; Glucose Random 84 mg/dL (60-115); Potassium 4.6 mmol/L (3.3-5.1); Sodium 141 mmol/L (135-145); Total Protein 6.5 g/dL (6.5-8.0)
== END 2022-10-30 11:19 | disposition home or self-care (01) ==
LOC: HO.LAB 11:18
PROVIDERS: PCP Internal Medicine; Visit Provider Student in an Organized Health Care Education/Training Program
DX: L40.50 Arthropathic psoriasis, unspecified (principal)
CPT/HCPCS: 36415; 80053; 85025; 85652; 86140

== ENCOUNTER → 2022-11-03 08:16 | Outpatient (BNVA) | payer OTHER, SELFPAY | PROVIDERS: PCP Internal Medicine; Visit Provider Student in an Organized Health Care Education/Training Program | DX: L40.50 Arthropathic psoriasis, unspecified (principal); M79.7 Fibromyalgia | CPT/HCPCS: 99212 ==

== ENCOUNTER 2022-12-22 16:00 | Emergency (ER) | payer OTHER, SELFPAY ==
--- NOTE | ~2022-12-22 | XR_ITS ---
EXAMINATION: XR FOOT, RIGHT CLINICAL INFORMATION: Puncture wound in right foot COMPARISON: None available. TECHNIQUE: AP, lateral, and oblique views of the right foot. FINDINGS: The bones and soft tissues are normal. No fracture. Alignment is anatomic. Joint spaces are maintained. No foreign bodies are identified XR/XR foot RT 2V IMPRESSION: Normal right foot.
[2022-12-22 16:08] VITALS: BP 144/92; PULSE 97; RESP 20; TEMP 36.8; O2SAT 98; BMI 22.5
--- NOTE | 2022-12-22 16:26 | ED.GENADULT ---
HPI - General Adult General Chief complaint: Extremity Problem Stated complaint: Punctured R heel Time Seen by Provider: 12/22/22 16:24 Source: patient Mode of arrival: ambulatory Limitations: no limitations History of Present Illness HPI narrative: Patient is a 52 year old assigned female at with a history of fibromyalgia and anxiety presenting to the emergency department today with right foot pain. Patient states that yesterday she stepped on an old piece of shelia fencing in her yard that went through her shoe and into her right heel. Patient states that she is not up to date on her tetanus status. Patient denies any dizziness, lightheadedness, abdominal pain, nausea, vomiting, fever, chills, blurry vision, double vision, loss of vision, chest pain, difficulty breathing, shortness of breath, back pain, night sweats, pain with urination, increased urinary frequency, increased urinary urgency, blood in her urine or stool, syncope or a near syncopal episode, bowel incontinence, bladder incontinence, bowel retention, bladder retention, or any other complaints at this time. Onset (ago): day(s) (1) Location: right (heel/foot) Radiation: non-radiation Severity: mild Severity scale (1-10): 3 Quality: aching and dull Pain Consistency: constant Relieving factors: none Exacerbating factors: none Associated symptoms: denies other symptoms Treatments prior to arrival: none Related Data Home Medications Medication Instructions Recorded Confirmed norethindrone 1 mg-ethinyl 1 tab PO DAILY 04/19/20 05/19/22 estradiol 10 mcg (24)-iron 10 mcg(2) tablet (Lo Loestrin Fe) sumatriptan succinate 100 mg tablet See Rx Instructions PO .COMPLEX 04/19/20 05/19/22 dextroamphetamine-amphetamine ER 60 mg PO DAILY 02/01/21 05/19/22 20 mg 24hr capsule,extend release ondansetron HCl 4 mg tablet 4 mg PO Q8H PRN 03/29/22 05/19/22 Previous Rx's Medication Instructions Recorded ondansetron 4 mg disintegrating 4 mg PO Q6-8H PRN nausea and 10/24/22 tablet vomiting #7 tabs oxycodone 5 mg tablet 5 mg PO Q6H PRN pain #20 tabs 10/24/22 meloxicam 15 mg tablet 15 mg PO DAILY #30 tabs 10/26/22 diclofenac sodium 1 % topical gel 2 g topical QID #100 grams 11/03/22 (Arthritis Pain (diclofenac)) cephalexin 500 mg capsule 500 mg PO Q6H 7 days #28 caps 12/22/22 doxycycline hyclate 100 mg tablet 100 mg PO BID 7 days #14 tabs 12/22/22 Allergies Allergy/AdvReac Type Severity Reaction Status Date / Time morphine Allergy itchy Verified 11/03/22 08:21 Review of Systems Constitutional: Constitutional: Reports no additional constitutional complaints, Denies chills, Denies fever(s) and Denies night sweats Eyes: Eyes: Reports no additional eye complaints, Denies blurry vision, Denies change in vision, Denies diplopia, Denies eye discharge, Denies loss of vision and Denies eye pain ENT: Denies dizziness Cardiovascular: Cardiovascular: Reports no additional cardiovascular complaints, Denies chest pain, Denies lightheadedness, Denies Loss of Consciousness and Denies dyspnea Respiratory: Respiratory: Reports no additional respiratory complaints and Denies dyspnea Gastrointestinal: Gastrointestinal: Reports no additional gastrointestinal complaints, Denies abdominal pain, Denies melena, Denies hematochezia, Denies change in bowel habits and Denies change in stool character Genitourinary: Genitourinary: Denies hematuria, Denies urinary frequency, Denies dysuria, Denies urinary incontinence, Denies urinary hesitancy and Denies urinary urgency Musculoskeletal: Musculoskeletal: Reports no additional musculoskeletal complaints, Denies numbness and Denies tingling Comments: right foot / heel pain Neurologic: Denies dizziness, Denies loss of vision, Denies numbness and Denies tingling Psychiatric: Psychiatric: Reports no additional psychiatric complaints Endocrine: Endocrine: Reports no additional endocrine complaints Hematologic/Lymphatic: Hematologic/Lymphatic: Reports no additional hematologic/lymphatic complaints Allergic/Immunologic: Allergic/Immunologic: Reports no additional allergic/immunologic complaints PMFSH Past Medical History Attestation statement: The following information was validated with the patient. Source: old records reviewed and nursing notes reviewed Medical History Annual physical exam Anxiety Attention deficit hyperactivity disorder Degenerative disc disease, lumbar Depression Eczema Hypoglycemia Irritable bowel syndrome with constipation Left ankle swelling Migraine Normal Pap smear PTSD (post-traumatic stress disorder) Rash Vitamin B12 deficiency Vitamin D deficiency Surgical History H/O colonoscopy History of tonsillectomy Family History Family History Father No problems noted. Mother No problems noted. Social History Social History Household Members Other:: lives with children 17 and 21-year-old, on disability for PTSD Housing: Apartment Patient Tobacco Use Status: Never used Tobacco e-Cigarette/Vaping Use: Never Used Advance Directives: No Advance Directives Information Provided: Yes Current occupational status: disabled Cognitive needs: No Hearing needs: No Vision needs: Yes Physical Exam ED Vital Signs: Vital Signs - 24 hr 12/22/22 16:08 Temperature 98.3 F Pulse Rate 97 Respiratory Rate 20 Blood Pressure 144/92 H Pulse Oximetry 98 Oxygen Delivery Method Room Air BMI result Body Mass Index 22.5 Const General: cooperative, no acute distress, alert and awake Nutritional Appearance: well nourished Orientation/consciousness: patient oriented x3 Limitations: no limitations HENMT Head: Yes normal to inspection and Yes atraumatic Ears: hearing grossly normal bilaterally and external ears normal General nose exam: Normal external nose present, no nasal discharge noted and no epistaxis Face and sinus: Yes normal facial exam, No abrasion and No laceration Mouth: Normal oral and palatal mucosa present, no drooling and no muffled voice Eyes General: appearance normal, both eyes and all related structures Periorbital: periorbital findings normal Eyelids: Yes eyelids normal Conjunctivae: conjunctivae normal Pupils: Equal, round and reactive pupils present EOM: EOMs intact bilaterally Neck Neck: Yes normal visual inspection, Yes full ROM and Yes no lymphadenopathy Chest Chest palpation & inspection: normal inspection of the chest Resp Effort & Inspection: normal respiratory effort and able to speak in complete sentences Auscultation: clear to auscultation bilaterally Cardio Rate: regular rate Rhythm: regular rhythm GI Inspection: Yes normal to inspection Palpation (GI): Soft to palpation, not firm, nontender and no guarding Neuro General: patient oriented x3 and moves all extremities Cranial nerves: Yes Equal, round and reactive pupils present Cognition (Neuro): normal cognition Motor exam (neuro): 5/5 motor strength present throughout Sensory Exam: Normal double simultaneous stimulation for sensation Coordination: aasybe-af-czos test normal Extrem Other: small puncture wound to the bottom of the right foot, no warmth, no redness, no gaping areas General: Yes full ROM and Yes capillary refill normal Psych Appearance: grossly normal Mental Status: mental status grossly normal Affect: normal affect Attitude: cooperative Thought process: Normal thought process present Thought content: Normal thought content present Insight: Good insight present (Psych) Medications Administered Discontinued Medications Generic Name Dose Route Start Last Admin Trade Name Lina PRN Reason Stop Dose Admin Diphtheria/Tetanus/Acell Pertussis 0.5 ml 12/22/22 16:51 12/22/22 16:56 Diphth,Pertus(Acell),Tet Adult 0.5 Ml Syringe IM 12/22/22 16:52 0.5 ml .ONCE ONE Administration Medical Decision Making Medical Decision Making [facility] Narrative: Patient is a 52 year old assigned female at with a history of fibromyalgia and anxiety presenting to the emergency department today with right foot pain. Patient's physical exam was as noted in the physical exam portion of this chart. Patient's right foot x-ray showed no acute process. I explained my physical exam findings as well as all test results to the patient. I answered all questions asked by the patient. Patient received a tetanus booster. I stressed the importance of the patient taking her medication as prescribed. I stressed the importance of the patient following up with her primary care provider and a design engineering intern. I stressed the importance of the patient returning to the emergency department immediately if her symptoms were to worsen or if she were to develop any dizziness, shortness of breath, difficulty breathing, chest pain, blurry vision, loss of vision, nausea, vomiting, abdominal pain, fever, chills, back pain, or any other complaints. Patient verbalized agreement and understanding with this treatment plan and discharge. Differential Diagnosis Differential Diagnoses: The differential diagnosis associated with the presentation includes right foot puncture wound, foot pain, heel pain Independent Interpretation I performed an independent interpretation of an: Plain X-Ray Interpretation: My interpretation is in agreement with the radiologist's impression of this imaging study. EXAMINATION: XR FOOT, RIGHT CLINICAL INFORMATION: Puncture wound in right foot? COMPARISON: None available.? TECHNIQUE: AP, lateral, and oblique views of the right foot. FINDINGS: The bones and soft tissues are normal. No fracture. Alignment is anatomic. Joint spaces are maintained. No foreign bodies are identified XR/XR foot RT 2V IMPRESSION: Normal right foot. Dictated By: Te Adhikari MD Signed By: Electronically signed by Te Adhikari MD 12/22/22 7396 Chronic Conditions Patient?s care impacted by: Other (anxiety and fibromyalgia) Discharge Plan Discharge Clinical Impression: Puncture wound Patient Disposition: Home, Self-Care Instructions: Puncture Wound (DC) Additional Instructions: Follow up with your primary care provider and a design engineering intern. Return to the emergency department immediately if your symptoms worsen or if you develop any dizziness, shortness of breath, difficulty breathing, chest pain, blurry vision, loss of vision, nausea, vomiting, abdominal pain, fever, chills, back pain, or any other complaints. Prescriptions: New cephalexin 500 mg capsule 500 mg PO Q6H 7 Days Qty: 28 0RF doxycycline hyclate 100 mg tablet 100 mg PO BID 7 Days Qty: 14 0RF No Action meloxicam 15 mg tablet 15 mg PO DAILY Qty: 30 1RF ondansetron 4 mg tablet,disintegrating 4 mg PO Q6-8H PRN (Reason: nausea and vomiting) Qty: 7 0RF oxycodone 5 mg tablet 5 mg PO Q6H PRN (Reason: pain) Qty: 20 0RF Rx Instructions: Partial Fill upon patient request. sumatriptan succinate 100 mg tablet See Rx Instructions PO .COMPLEX Rx Instructions: take 1 tab at onset of headache; if no relief, may repeat 1 tab after at least 2 hrs; max = 2 tabs/24 hrs PO Lo Loestrin Fe 1 mg-10 mcg (24)/10 mcg (2) tablet 1 tab PO DAILY dextroamphetamine-amphetamine 20 mg capsule,extended release 24hr 60 mg PO DAILY ondansetron HCl 4 mg tablet 4 mg PO Q8H PRN diclofenac sodium [Arthritis Pain (diclofenac)] 1 % gel 2 g topical QID Qty: 100 1RF Rx Instructions: apply to single elbow, wrist or hand; for hand includes palm/fingers/back of hand Referrals: Trinity Estrella MD [Primary Care Provider] - Brent Ford DPM [Physician] - (Call to establish and follow up with a design engineering intern. ) Stand Alone Forms: Work/School Release Interventions: ED Discharge Assessment Last Done: 12/22/22 16:51 Discharge Date/Time: 12/22/22 16:59 Print Language: Kosovan
[2022-12-22] MEDS: Diphth,Pertus(ACell),Tet Adult 0.5 ML SYRINGE IM (16:56)
== END 2022-12-22 16:59 | disposition home or self-care (01) ==
PROVIDERS: Emergency Provider Student in an Organized Health Care Education/Training Program; PCP Internal Medicine
DX: S91.331A Puncture wound without foreign body, right foot, initial encounter (principal); S90.811A Abrasion, right foot, initial encounter; M79.671 Pain in right foot; X58.XXXA Exposure to other specified factors, initial encounter; Y93.9 Activity, unspecified; Y92.9 Unspecified place or not applicable; Y99.9 Unspecified external cause status; Z23 Encounter for immunization
CPT/HCPCS: 73620; 90471; 90715; 99283; 99284

== ENCOUNTER 2023-05-02 09:30 | Outpatient (REF) | payer OTHER, SELFPAY ==
[2023-05-02 09:52] LABS: MANUAL DIFF FLAG NO
[2023-05-02 10:16] LABS: Basophils Percent Auto 0.7 % (0-2); Eosinophils Absolute Auto 0.1 X10*3/uL (0.0-0.4); Hematocrit 41.3 % (37.0-47.0); Hemoglobin 13.3 g/dl (12.0-16.0); Imm Gran Abs Auto 0.01 X10*3/uL (0.00-0.03); Imm Gran Pct Auto 0.2 % (0.0-0.4); Lymphocytes Absolute Auto 0.9 X10*3/uL (1.2-4.9); Mean Corpuscular HGB Conc 32.2 g/dl (31.0-35.0); Mean Corpuscular Hemoglobin 29.6 pg (27.0-33.0); Mean Platelet Volume 11.6 fL (9.4-12.3); Monocytes Absolute Auto 0.6 X10*3/uL (0.1-1.2); Neutrophils Percent Auto 66.1 % (45-73); Platelet Count 154 X10*3/uL (160-400); Red Blood Count 4.49 X10*6/uL (4.20-5.50); Red Cell Distribution Width 12.3 % (11.0-16.0); White Blood Count 4.6 X10*3/uL (4.8-10.8)
[2023-05-02 10:43] LABS: Alanine Aminotransferase 20 U/L (0-31); Albumin Level 4.1 g/dL (3.5-5.0); Alkaline Phosphatase 75 U/L (39-117); Anion Gap 10 (12-20); Aspartate Amino Transferase 22 U/L (5-31); Bilirubin Total 0.5 mg/dL (0.0-1.0); Blood Urea Nitrogen 10 mg/dL (9-16); C Reactive Protein 0.12 mg/dL (< or = 0.50); Calcium 9.4 mg/dL (8.4-10.2); Carbon Dioxide 26 mmol/L (22-29); Chloride 107 mmol/L (96-108); Estimated Glomerular Filt Rate > 60; Glucose Random 95 mg/dL (60-115); Potassium 4.3 mmol/L (3.3-5.1); Sodium 139 mmol/L (135-145); Total Protein 6.5 g/dL (6.5-8.0)
[2023-05-02 10:55] LABS: Erythrocyte Sedimentation Rate 3 MM/HR (0-20)
== END 2023-05-02 09:31 | disposition home or self-care (01) ==
LOC: HO.LAB 09:30
PROVIDERS: PCP Internal Medicine; Visit Provider Student in an Organized Health Care Education/Training Program
DX: L40.50 Arthropathic psoriasis, unspecified (principal)
CPT/HCPCS: 36415; 80053; 85025; 85652; 86140

== ENCOUNTER 2023-05-04 09:22 | Outpatient (AMB) | payer OTHER, SELFPAY ==
[2023-05-04 09:26] VITALS: BP 128/92; PULSE 81; TEMP 36.2; O2SAT 97; BMI 22.9
--- NOTE | 2023-05-04 09:26 | A.OFFVIS_ITS ---
Intake Vital Signs 05/04/23 09:26 Height 5 ft 5 in Weight 137 lb 9.095 oz BMI 22.9 BP 128/92 H Blood Pressure Location Lt brachial Position Sitting Pulse 81 Pulse Source Pulse Oximeter Temp 97.2 F Temp Source Skin Pulse Oximetry (%) 97 Oxygen Delivery Method Room Air Intake Visit Reasons: 6 mnts f/u for PSA Intake Note: Pt presents today for follow up and test results. Continues to use meloxicam and voltaren gel. 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 Accompanied by: Self / Same As Patient Allergies morphine Allergy (Verified 05/04/23 09:29) itchy Medication List - Last Reconciled 05/04/23 by Narendra Allen MD dextroamphetamine-amphetamine 20 mg 1 tab PO BID diclofenac sodium 1% (Arthritis Pain (diclofenac)) 2 grams topical QID meloxicam 15 mg PO DAILY PRN methylprednisolone (Medrol (Khadar)) PO PER PKG DIR ondansetron 4 mg PO Q6-8H PRN sulfasalazine orally give with food (meal/snack); take 1 tab twice daily for 1 week then 2 tabs in the morning & 1 at night for 1 week then 2 tabs twice daily sumatriptan succinate take 1 tab at onset of headache; if no relief, may repeat 1 tab after at least 2 hrs; max = 2 tabs/24 hrs PO HPI HPI Comments History of Present Illness Details 52-year-old patient with psoriatic arthr itis returns for follow-up. Over the last month she has been having recurrent joint pain. The majority of her pain is on the ulnar aspect of her right hand, right little finger and right ring finger. Intermittent swelling of her wrists, right elbow pain and right shoulder pain. She also gets intermittent pain and swelling of her left foot. She states that some days she gets morning stiffness of her hands lasting a few hours. She has been taking the meloxicam 15 mg daily and applying Voltaren gel multiple times a day with little relief. Initial history: This is a 51-year-old female with a past medical history of ADHD, degenerative disc disease of the spine, depression, IBS, migraines presents for evaluation of right hand pain. Patient started noticing that her right hand fingers have been changing, she has some knobby deformities. However she also has significant pain swelling and redness at her right 5th MCP, she does not recall any trauma to the area. She has received intra-articular steroid injections for her hands in the past with short-lived relief. She went to the urgent care earlier this month and she was prescribed meloxicam 7.5 mg daily which only provides little relief. She also applies diclofenac gel which does not help In January of last year she developed left ankle pain and swelling which was treated with Voltaren gel. This took about 1-2 months to resolve. She does not recall any trauma to the left ankle. She has multiple other complaints including fatigue, weakness, dry eyes, mouth sores, nausea, headache, dizziness. She is complaining of bones the back of her hand behind her ears nontender. [facility] Medical History Rash Eczema Left ankle swelling Vitamin B12 deficiency Vitamin D deficiency Hypoglycemia Annual physical exam Normal Pap smear Irritable bowel syndrome with constipation PTSD (post-traumatic stress disorder) Degenerative disc disease, lumbar Depression Anxiety Migraine Attention deficit hyperactivity disorder Surgical History H/O colonoscopy History of tonsillectomy Family History Father No problems noted. Mother No problems noted. Social History Household Members Other:: lives with children 17 and 21-year-old, on disability for PTSD Housing: Apartment Patient Tobacco Use Status: Never used Tobacco e-Cigarette/Vaping Use: Never Used Current occupational status: disabled Cognitive needs: No Hearing needs: No Vision needs: Yes Review of Systems Musc Reports arthralgias, Reports joint swelling, Reports limited range of motion and Reports stiffness Physical Exam Vital Signs: Last Vital Signs Temp 97.2 F 05/04/23 09:26 Pulse 81 05/04/23 09:26 BP 128/92 H 05/04/23 09:26 Pulse Ox 97 05/04/23 09:26 Oxygen Delivery Method Room Air 05/04/23 09:26 BMI result Body Mass Index 22.9 Const General: cooperative, healthy appearing and anxious Nutritional Appearance: average body habitus Orientation/consciousness: patient oriented x3 Limitations: no limitations Resp Effort & Inspection: normal respiratory effort and able to speak in complete sentences Neuro General: patient oriented x3 Extrem Other: osteoarthritic changes of both hands worse on the right hand with Heberden's and Ebenezer's nodes She has some deformity & swelling of right 5th MCP but no tenderness, warmth or erythema today No swelling or tenderness in both ankles and feet. No MTP tenderness and negative MTP squeeze test bilaterally Few fibromyalgia tender points Normal nailfold capillaroscopy No ankle swelling edema or warmth Results Reviewed Results Reviewed: XR/XR sacroiliac joint min 3V IMPRESSION: 1.? Unremarkable SI joints. 2.? There are 2 cages at the L5-S1 disc level for fusion. ? 3.? Unremarkable left hand/wrist exam ?MR/MR hand RT wo con 04/2022 IMPRESSION: Fifth metacarpal phalangeal joint effusion with marrow edema in the 5th metacarpal head and base of the fifth proximal phalanx as well as circumferential soft tissue edema. Additionally there is attenuation and abnormal signal of the collateral ligaments. Findings could represent an infectious or inflammatory arthropathy. Small calcifications on the prior radiographs could indicate gout arthritis in the appropriate setting. Alternatively, findings could indicate posttraumatic changes in the setting of recent injury. ? Mild 5th flexor tenosynovitis without a transverse tendon tear or tendon retraction. Assessment & Plan Assessment & Plan (1) Psoriatic arthritis: Code(s): L40.50 - Arthropathic psoriasis, unspecified Plan: This is a 52-year-old female with psoriatic arthritis (seronegative spondyloarthropathy manifested by right 5th MCP arthritis and 5th flexor tenosynovitis, recurrent left Achillis tendonitis, HLA B27 negative). Over the last month patient has been having recurrent joint pain, swelling and stiffness. Symptoms not controlled with daily meloxicam and applying Voltaren gel. Will need to start DMARDs. Discussed risks and benefits of sulfasalazine. Patient agreed to proceed. 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 Panel 2 Months L40.50 - Arthropathic psoriasis, unspecified C Reactive Protein 2 Months L40.50 - Arthropathic psoriasis, unspecified Erythrocyte Sedimentation Rate 2 Months L40.50 - Arthropathic psoriasis, unspecified Hepatitis A,B,C Profile 2 Months Z11.59 - Encounter for screening for other viral diseases Medications: New methylprednisolone (Medrol (Khadar)) PO PER PKG DIR 21 ea 0RF Changed From sulfasalazine give with food (meal/snack) take 1 tab twice daily for 1 week then 2 tabs in the morning & 1 at night for 1 week then 2 tabs twice daily 120 tabs 1RF To sulfasalazine orally give with food (meal/snack); take 1 tab twice daily for 1 week then 2 tabs in the morning & 1 at night for 1 week then 2 tabs twice daily 240 tabs 1RF From meloxicam 15 mg PO DAILY 30 tabs 3RF L40.50 - Arthropathic psoriasis, unspecified To meloxicam 15 mg PO DAILY PRN 30 tabs 3RF pain L40.50 - Arthropathic psoriasis, unspecified Refilled diclofenac sodium 1% (Arthritis Pain (diclofenac)) apply to single elbow, wrist or hand; for hand includes palm/fingers/back of hand 2 grams topical QID 100 grams 2RF Coding Level of Care Code Est Pt Level 4 (79385) Diagnoses Psoriatic arthritis L40.50 Encounter for monitoring sulfasalazine therapy Z51.81; Z79.891
== END 2023-05-04 09:52 | disposition home or self-care (01) ==
PROVIDERS: PCP Internal Medicine; Visit Provider Student in an Organized Health Care Education/Training Program
DX: L40.50 Arthropathic psoriasis, unspecified (principal); Z51.81 Encounter for therapeutic drug level monitoring; Z79.899 Other long term (current) drug therapy
CPT/HCPCS: 99214

== ENCOUNTER → 2023-05-04 09:22 | Outpatient (BNVA) | payer OTHER, SELFPAY | PROVIDERS: PCP Internal Medicine; Visit Provider Student in an Organized Health Care Education/Training Program | DX: L40.50 Arthropathic psoriasis, unspecified (principal); Z51.81 Encounter for therapeutic drug level monitoring; Z79.899 Other long term (current) drug therapy | CPT/HCPCS: 99212 ==

== ENCOUNTER 2023-06-26 11:29 | Outpatient (REF) | payer OTHER, SELFPAY ==
[2023-06-26 11:43] LABS: MANUAL DIFF FLAG NO
[2023-06-26 12:29] LABS: Basophils Percent Auto 0.2 % (0-2); Eosinophils Percent Auto 0.4 % (0-4); Hematocrit 43.6 % (37.0-47.0); Hemoglobin 14.1 g/dl (12.0-16.0); Imm Gran Abs Auto 0.02 X10*3/uL (0.00-0.03); Imm Gran Pct Auto 0.4 % (0.0-0.4); Lymphocytes Absolute Auto 0.8 X10*3/uL (1.2-4.9); Lymphocytes Percent Auto 15.2 % (20-40); Mean Corpuscular HGB Conc 32.3 g/dl (31.0-35.0); Mean Corpuscular Hemoglobin 29.6 pg (27.0-33.0); Mean Corpuscular Volume 91.6 fL (80.0-98.0); Mean Platelet Volume 11.3 fL (9.4-12.3); Monocytes Absolute Auto 0.5 X10*3/uL (0.1-1.2); Monocytes Percent Auto 8.9 % (2-11); Neutrophils Percent Auto 74.9 % (45-73); Platelet Count 142 X10*3/uL (160-400); Red Blood Count 4.76 X10*6/uL (4.20-5.50); Red Cell Distribution Width 13.1 % (11.0-16.0); White Blood Count 5.3 X10*3/uL (4.8-10.8)
[2023-06-26 12:55] LABS: Alanine Aminotransferase 13 U/L (0-31); Albumin Level 4.3 g/dL (3.5-5.0); Alkaline Phosphatase 78 U/L (39-117); Anion Gap 13 (12-20); Aspartate Amino Transferase 14 U/L (5-31); Bilirubin Total 0.6 mg/dL (0.0-1.0); Blood Urea Nitrogen 8 mg/dL (9-16); C Reactive Protein < 0.10 mg/dL (< or = 0.50); Calcium 9.3 mg/dL (8.4-10.2); Carbon Dioxide 28 mmol/L (22-29); Chloride 106 mmol/L (96-108); Estimated Glomerular Filt Rate > 60; Glucose Random 108 mg/dL (60-115); Potassium 3.8 mmol/L (3.3-5.1); Sodium 143 mmol/L (135-145); Total Protein 6.8 g/dL (6.5-8.0)
[2023-06-26 13:07] LABS: Erythrocyte Sedimentation Rate 2 MM/HR (0-20)
[2023-06-27 04:39] LABS: HBS Num1 113.51 mIU/mL (0-7.99); HBc Num1 0.08 S/CO (0.00-0.79); HBsAGNum1 0.28 S/CO (0.00-0.99); Hepatitis A Antibody IgM 0.12 Index (0-0.79); Hepatitis B Core Antibody Nonreactive (Nonreactive); Hepatitis B Surface Antigen Negative (Negative); ~HepC Num1 0.16 S/CO (0.00-0.79); ~Hepatitis A Antibody IgM Nonreactive (Nonreactive); ~Hepatitis B Surface Antibody REACTIVE (Nonreactive); ~Hepatitis C Antibody Nonreactive (Nonreactive)
[2023-06-28 19:09] LABS: TS Negative Control Passed; TS Panel A 0; TS Panel B 0; TS Positive Control Passed; TSpotTB Negative (Negative)
== END 2023-06-26 11:30 | disposition home or self-care (01) ==
LOC: HO.LAB 11:29
PROVIDERS: PCP Internal Medicine; Visit Provider Student in an Organized Health Care Education/Training Program
DX: Z11.7 Encounter for testing for latent tuberculosis infection (principal); Z11.59 Encounter for screening for other viral diseases; L40.50 Arthropathic psoriasis, unspecified; Z72.89 Other problems related to lifestyle
CPT/HCPCS: 36415; 80053; 85025; 85652; 86140; 86481; 86704; 86706; 86709; 86803; 87340

== ENCOUNTER 2023-07-04 08:31 | Outpatient (AMB) | payer OTHER, SELFPAY ==
--- NOTE | 2023-07-04 08:36 | MHC.OFFVIS ---
Intake Vital Signs 07/04/23 08:37 Height 5 ft 5 in Weight 138 lb 10.732 oz BMI 23.1 BP 140/70 H Blood Pressure Location Rt brachial Position Sitting Pulse 84 Pulse Source Pulse Oximeter Temp 97 F Temp Source Skin Pulse Oximetry (%) 97 Oxygen Delivery Method Room Air Intake Visit Reasons: PsA Intake Note: Patient in office today to go over test results. Reports waiting on massage therapy because they only allow some many a year . Reports neck soreness. 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 Accompanied by: Self / Same As Patient Allergies morphine Allergy (Verified 07/04/23 08:39) itchy Medication List - Last Reconciled 07/04/23 by Narendra Allen MD dextroamphetamine-amphetamine 20 mg 1 tab PO BID diclofenac sodium 1% (Arthritis Pain (diclofenac)) 2 grams topical QID meloxicam 15 mg PO DAILY PRN methylprednisolone (Medrol) 8 mg PO DAILY ondansetron 4 mg PO Q6-8H PRN sulfasalazine 1 g PO BID sumatriptan succinate take 1 tab at onset of headache; if no relief, may repeat 1 tab after at least 2 hrs; max = 2 tabs/24 hrs PO HPI HPI Comments History of Present Illness Details 52-year-old patient with psoriatic arthritis returns for follow-up. She is on sulfasalazine 1000 mg Twice daily and Medrol 8 mg daily. She does not take meloxicam us long as she takes Medrol. She states that she has been doing well overall. More recently she has been having neck pain, works with movement. She has not been able to sleep well as her neighbors recently had a baby and it is hard to sleep. She is frustrated that her insurance company would not authorize her massage therapy treatments. She is hopeful that it will be authorized in early 2023. She states that she gets intermittent joint pains. Affecting different areas such as her knuckles, elbows, shoulders. Initial history: This is a 51-year-old female with a past medical history of ADHD, degenerative disc disease of the spine, depression, IBS, migraines presents for evaluation of right hand pain. Patient started noticing that her right hand fingers have been changing, she has some knobby deformities. However she also has significant pain swelling and redness at her right 5th MCP, she does not recall any trauma to the area. She has received intra-articular steroid injections for her hands in the past with short-lived relief. She went to the urgent care earlier this month and she was prescribed meloxicam 7.5 mg daily which only provides little relief. She also applies diclofenac gel which does not help In January of last year she developed left ankle pain and swelling which was treated with Voltaren gel. This took about 1-2 months to resolve. She does not recall any trauma to the left ankle. She has multiple other complaints including fatigue, weakness, dry eyes, mouth sores, nausea, headache, dizziness. She is complaining of bones the back of her hand behind her ears nontender. [facility] Medical History Rash Eczema Left ankle swelling Vitamin B12 deficiency Vitamin D deficiency Hypoglycemia Annual physical exam Normal Pap smear Irritable bowel syndrome with constipation PTSD (post-traumatic stress disorder) Degenerative disc disease, lumbar Depression Anxiety Migraine Attention deficit hyperactivity disorder Surgical History H/O colonoscopy History of tonsillectomy Family History Father No problems noted. Mother No problems noted. Social History Household Members Other:: lives with children 17 and 21-year-old, on disability for PTSD Housing: Apartment Patient Tobacco Use Status: Never used Tobacco e-Cigarette/Vaping Use: Never Used Current occupational status: disabled Cognitive needs: No Hearing needs: No Vision needs: Yes Review of Systems [facility] [place] Reports arthralgias and Reports stiffness Physical Exam Vital Signs: Last Vital Signs Temp 97 F 07/04/23 08:37 Pulse 84 07/04/23 08:37 BP 140/70 H 07/04/23 08:37 Pulse Ox 97 07/04/23 08:37 Oxygen Delivery Method Room Air 07/04/23 08:37 BMI result Body Mass Index 23.1 Const General: cooperative, healthy appearing and anxious Nutritional Appearance: average body habitus Orientation/consciousness: patient oriented x3 Limitations: no limitations Resp Effort & Inspection: normal respiratory effort and able to speak in complete sentences Neuro General: patient oriented x3 Extrem Other: osteoarthritic changes of both hands worse on the right hand with Heberden's and Ebenezer's nodes No active synovitis today Mild flexion contracture of right 5th PIP No swelling or tenderness in both ankles and feet. No MTP tenderness and negative MTP squeeze test bilaterally Few fibromyalgia tender points Normal nailfold capillaroscopy No ankle swelling edema or warmth Results Reviewed Results Reviewed: XR/XR sacroiliac joint min 3V IMPRESSION: 1.? Unremarkable SI joints. 2.? There are 2 cages at the L5-S1 disc level for fusion. ? 3.? Unremarkable left hand/wrist exam ?MR/MR hand RT wo con 04/2022 IMPRESSION: Fifth metacarpal phalangeal joint effusion with marrow edema in the 5th metacarpal head and base of the fifth proximal phalanx as well as circumferential soft tissue edema. Additionally there is attenuation and abnormal signal of the collateral ligaments. Findings could represent an infectious or inflammatory arthropathy. Small calcifications on the prior radiographs could indicate gout arthritis in the appropriate setting. Alternatively, findings could indicate posttraumatic changes in the setting of recent injury. ? Mild 5th flexor tenosynovitis without a transverse tendon tear or tendon retraction. Assessment & Plan Assessment & Plan (1) Psoriatic arthritis: Comment: [facility] 04/30 effective Code(s): L40.50 - Arthropathic psoriasis, unspecified Plan: This is a 52-year-old female with psoriatic arthritis (seronegative spondyloarthropathy manifested by right 5th MCP arthritis and 5th flexor tenosynovitis, recurrent left Achillis tendonitis, HLA B27 negative). She is on the sizing 1000 mg Twice daily and Medrol 8 mg daily. Continue sulfasalazine 1000 mg Twice daily Reduce Medrol to 4 mg daily for 1 month then 4 mg every other day for 1 month Labs before next visit in 2 months (2) Encounter for monitoring sulfasalazine therapy: Code(s): Z51.81 - Encounter for therapeutic drug level monitoring; Z79.899 - Other skilled nursing (current) drug therapy Plan: Monitor safety labs Plan I spent 27 minutes reviewing patient's chart, evaluating patient, ordering diagnostic workup, counseling patient and documenting in the chart Orders: Orders Comprehensive Met. Panel 2 Months Z51.81 - Encounter for therapeutic drug level monitoring, Z79.899 - Other skilled nursing (current) drug therapy Complete Blood Count Auto Diff 2 Months Z51.81 - Encounter for therapeutic drug level monitoring, Z79.899 - Other long term care pharmacist (current) drug therapy C Reactive Protein 2 Months Z51.81 - Encounter for therapeutic drug level monitoring, Z79.899 - Other skilled nursing (current) drug therapy Erythrocyte Sedimentation Rate 2 Months Z51.81 - Encounter for therapeutic drug level monitoring, Z79.899 - Other long term care pharmacist (current) drug therapy Medications: New methylprednisolone (Medrol) Take 1 tab daily for 1 month then 1 tab every other day for 1 month 45 tabs 0RF Changed From sulfasalazine orally give with food (meal/snack); take 1 tab twice daily for 1 week then 2 tabs in the morning & 1 at night for 1 week then 2 tabs twice daily 240 tabs 1RF To sulfasalazine 1 g PO BID Discontinued methylprednisolone (Medrol) Discontinued Reason: Doctor's Order 8 mg PO DAILY 30 tabs 1RF Coding Level of Care Code Est Pt Level 4 (42763) Diagnoses Psoriatic arthritis L40.50 Encounter for monitoring sulfasalazine therapy Z51.81; Z79.899
[2023-07-04 08:37] VITALS: BP 140/70; PULSE 84; TEMP 36.1; O2SAT 97; BMI 23.1
== END 2023-07-04 09:02 | disposition home or self-care (01) ==
PROVIDERS: PCP Internal Medicine; Visit Provider Student in an Organized Health Care Education/Training Program
DX: L40.50 Arthropathic psoriasis, unspecified (principal); Z51.81 Encounter for therapeutic drug level monitoring; Z79.899 Other long term (current) drug therapy
CPT/HCPCS: 99214

== ENCOUNTER → 2023-07-04 08:31 | Outpatient (BNVA) | payer OTHER, SELFPAY | PROVIDERS: PCP Internal Medicine; Visit Provider Student in an Organized Health Care Education/Training Program | DX: L40.50 Arthropathic psoriasis, unspecified (principal); Z51.81 Encounter for therapeutic drug level monitoring; Z79.899 Other long term (current) drug therapy | CPT/HCPCS: 99212 ==

== ENCOUNTER 2023-09-06 08:31 | Outpatient (REF) | payer OTHER, SELFPAY ==
[2023-09-06 08:48] LABS: MANUAL DIFF FLAG NO
[2023-09-06 09:17] LABS: Basophils Percent Auto 0.4 % (0-2); Eosinophils Absolute Auto 0.1 X10*3/uL (0.0-0.4); Eosinophils Percent Auto 1.5 % (0-4); Hematocrit 40.3 % (37.0-47.0); Hemoglobin 13.4 g/dl (12.0-16.0); Imm Gran Abs Auto 0.01 X10*3/uL (0.00-0.03); Imm Gran Pct Auto 0.2 % (0.0-0.4); Lymphocytes Absolute Auto 1.1 X10*3/uL (1.2-4.9); Lymphocytes Percent Auto 20.8 % (20-40); Mean Corpuscular HGB Conc 33.3 g/dl (31.0-35.0); Mean Corpuscular Hemoglobin 31.5 pg (27.0-33.0); Mean Corpuscular Volume 94.8 fL (80.0-98.0); Mean Platelet Volume 11.6 fL (9.4-12.3); Monocytes Absolute Auto 0.6 X10*3/uL (0.1-1.2); Monocytes Percent Auto 10.7 % (2-11); Neutrophils Absolute Auto 3.5 x10*3/uL (2.0-8.3); Neutrophils Percent Auto 66.4 % (45-73); Platelet Count 149 X10*3/uL (160-400); Red Blood Count 4.25 X10*6/uL (4.20-5.50); Red Cell Distribution Width 12.4 % (11.0-16.0); White Blood Count 5.3 X10*3/uL (4.8-10.8)
[2023-09-06 09:39] LABS: Alanine Aminotransferase 11 U/L (0-31); Alkaline Phosphatase 77 U/L (39-117); Anion Gap 9 (12-20); Aspartate Amino Transferase 13 U/L (5-31); Bilirubin Total 0.4 mg/dL (0.0-1.0); Blood Urea Nitrogen 13 mg/dL (9-16); Calcium 8.6 mg/dL (8.4-10.2); Carbon Dioxide 26 mmol/L (22-29); Chloride 110 mmol/L (96-108); Estimated Glomerular Filt Rate > 60; Glucose Random 80 mg/dL (60-115); Potassium 3.8 mmol/L (3.3-5.1); Sodium 141 mmol/L (135-145); Total Protein 6.4 g/dL (6.5-8.0)
[2023-09-06 09:55] LABS: Erythrocyte Sedimentation Rate 2 MM/HR (0-20)
== END 2023-09-06 08:32 | disposition home or self-care (01) ==
LOC: HO.LAB 08:31
PROVIDERS: PCP Internal Medicine; Visit Provider Student in an Organized Health Care Education/Training Program
DX: L40.50 Arthropathic psoriasis, unspecified (principal); Z51.81 Encounter for therapeutic drug level monitoring; Z79.899 Other long term (current) drug therapy
CPT/HCPCS: 36415; 80053; 85025; 85652; 86140

== ENCOUNTER 2023-09-11 08:41 | Outpatient (AMB) | payer OTHER, SELFPAY ==
[2023-09-11 09:02] VITALS: BP 132/80; PULSE 91; TEMP 36.5; O2SAT 97; BMI 22.5
--- NOTE | 2023-09-11 09:02 | A.OFFVIS_ITS ---
Intake Vital Signs 09/11/23 09:02 Height 5 ft 5 in Weight 135 lb 5.821 oz BMI 22.5 BP 132/80 Blood Pressure Location Rt brachial Position Sitting Pulse 91 Pulse Source Pulse Oximeter Temp 97.7 F Temp Source Skin Pulse Oximetry (%) 97 Oxygen Delivery Method Room Air Intake Visit Reasons: PsA Intake Note: Patient last seen 07/04/23 presents today for follow up and test results. Reports heavy period, feeling very tired. She states she was doing well on sulfasalazine until a few weeks ago she stopped taking it because of stomach issues and other things. Today she complains of pain/stiffness on left side of neck, shoulder and into jaw, trying to figure out whats causing it. Cardiologist Required: No Accompanied by: Self / Same As Patient Allergies morphine Allergy (Verified 09/11/23 09:07) itchy Medication List - Last Reconciled 09/11/23 by Narendra Allen MD dextroamphetamine-amphetamine 20 mg 1 tab PO BID diclofenac sodium 1% (Arthritis Pain (diclofenac)) 2 grams topical QID meloxicam 15 mg PO DAILY PRN ondansetron 4 mg PO Q6-8H PRN sulfasalazine 1 g PO BID sumatriptan succinate take 1 tab at onset of headache; if no relief, may repeat 1 tab after at least 2 hrs; max = 2 tabs/24 hrs PO HPI HPI Comments History of Present Illness Details 53-year-old patient with psoriatic arthr itis returns for follow-up. She states that she was taking sulfasalazine regularly until about 2 weeks ago when she started having stomach issues and irregular periods. 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 She stated that she has always had GI issues she does not feel it is related to sulfasalazine as she did not have those side effects in the past. She has not been taking Medrol recently. Recently she has been having some left-sided neck pain as well as left upper back pain. She can not tell what caused it. She has been under plenty of stress recently. Initial history: This is a 51-year-old female with a past medical history of ADHD, degenerative disc disease of the spine, depression, IBS, migraines presents for evaluation of right hand pain. Patient started noticing that her right hand fingers have been changing, she has some knobby deformities. However she also has significant pain swelling and redness at her right 5th MCP, she does not recall any trauma to the area. She has received intra-articular steroid injections for her hands in the past with short-lived relief. She went to the urgent care earlier this month and she was prescribed meloxicam 7.5 mg daily which only provides little relief. She also applies diclofenac gel which does not help In January of last year she developed left ankle pain and swelling which was treated with Voltaren gel. This took about 1-2 months to resolve. She does not recall any trauma to the left ankle. She has multiple other complaints including fatigue, weakness, dry eyes, mouth sores, nausea, headache, dizziness. She is complaining of bones the back of her hand behind her ears nontender. [facility] Medical History Rash Eczema Left ankle swelling Vitamin B12 deficiency Vitamin D deficiency Hypoglycemia Annual physical exam Normal Pap smear Irritable bowel syndrome with constipation PTSD (post-traumatic stress disorder) Degenerative disc disease, lumbar Depression Anxiety Migraine Attention deficit hyperactivity disorder Surgical History H/O colonoscopy History of tonsillectomy Family History Father No problems noted. Mother No problems noted. Social History Household Members Other:: lives with children 17 and 21-year-old, on disability for PTSD Housing: Apartment Patient Tobacco Use Status: Never used Tobacco e-Cigarette/Vaping Use: Never Used Current occupational status: disabled Cognitive needs: No Hearing needs: No Vision needs: Yes Review of Systems ENT Reports neck pain Musc Reports arthralgias, Reports neck pain and Reports stiffness Physical Exam Vital Signs: Last Vital Signs Temp 97.7 F 09/11/23 09:02 Pulse 91 09/11/23 09:02 BP 132/80 09/11/23 09:02 Pulse Ox 97 09/11/23 09:02 Oxygen Delivery Method Room Air 09/11/23 09:02 BMI result Body Mass Index 22.5 Const General: cooperative, healthy appearing and anxious Nutritional Appearance: average body habitus Orientation/consciousness: patient oriented x3 Limitations: no limitations Neck Other: Normal range of motion of neck without pain No tenderness could be elicited No tender points or trigger points Resp Effort & Inspection: normal respiratory effort and able to speak in complete sentences Neuro General: patient oriented x3 Extrem Other: osteoarthritic changes of both hands worse on the right hand with Heberden's and Ebenezer's nodes No active synovitis today Mild flexion contracture of right 5th PIP No swelling or tenderness in both ankles and feet. No MTP tenderness and negative MTP squeeze test bilaterally Normal nailfold capillaroscopy No ankle swelling edema or warmth Results Reviewed Results Reviewed: XR/XR sacroiliac joint min 3V IMPRESSION: 1.? Unremarkable SI joints. 2.? There are 2 cages at the L5-S1 disc level for fusion. ? 3.? Unremarkable left hand/wrist exam ?MR/MR hand RT wo con 04/2022 IMPRESSION: Fifth metacarpal phalangeal joint effusion with marrow edema in the 5th metacarpal head and base of the fifth proximal phalanx as well as circumferential soft tissue edema. Additionally there is attenuation and abnormal signal of the collateral ligaments. Findings could represent an infectious or inflammatory arthropathy. Small calcifications on the prior radiographs could indicate gout arthritis in the appropriate setting. Alternatively, findings could indicate posttraumatic changes in the setting of recent injury. ? Mild 5th flexor tenosynovitis without a transverse tendon tear or tendon retraction. Assessment & Plan Assessment & Plan (1) Psoriatic arthritis: Comment: [facility] 04/30 effective Code(s): L40.50 - Arthropathic psoriasis, unspecified Plan: This is a 53-year-old female with psoriatic arthritis (seronegative spondyloarthropathy manifested by right 5th MCP arthritis and 5th flexor tenosynovitis, recurrent left Achillis tendonitis, HLA B27 negative). Patient has been doing well on sulfasalazine 1000 mg Twice daily. She self discontinued it 2 months ago without any clear reasons. She has no active synovitis on exam today. Advised patient to restart sulfasalazine. 1000 mg Twice daily Labs before next visit in 3 months (2) Encounter for monitoring sulfasalazine therapy: Code(s): Z51.81 - Encounter for therapeutic drug level monitoring; Z79.899 - Other local intermodal truck driver (current) drug therapy Plan: Monitor safety labs Plan I spent 27 minutes reviewing patient's chart, evaluating patient, ordering diagnostic workup, counseling patient and documenting in the chart Coding Level of Care Code Est Pt Level 4 (41843) Diagnoses Psoriatic arthritis L40.50 Encounter for monitoring sulfasalazine therapy Z51.81; Z79.899
== END 2023-09-11 09:43 | disposition home or self-care (01) ==
PROVIDERS: PCP Internal Medicine; Visit Provider Student in an Organized Health Care Education/Training Program
DX: L40.50 Arthropathic psoriasis, unspecified (principal); Z51.81 Encounter for therapeutic drug level monitoring; Z79.899 Other long term (current) drug therapy
CPT/HCPCS: 99214

== ENCOUNTER → 2023-09-11 08:41 | Outpatient (BNVA) | payer OTHER, SELFPAY | PROVIDERS: PCP Internal Medicine; Visit Provider Student in an Organized Health Care Education/Training Program | DX: L40.50 Arthropathic psoriasis, unspecified (principal); Z51.81 Encounter for therapeutic drug level monitoring; Z79.899 Other long term (current) drug therapy | CPT/HCPCS: 99212 ==

== ENCOUNTER 2023-11-14 06:40 | Emergency (ER) | payer OTHER, SELFPAY ==
[2023-11-14 06:48] VITALS: BP 162/90; PULSE 82; RESP 16; TEMP 36.7; O2SAT 100; BMI 23.9
[2023-11-14] MEDS: Acetaminophen 325 MG TABLET 975 MG PO (07:27)
[2023-11-14] MEDS: Lidocaine 4 % Patch ADH..PATCH 1 PATCH TRANSDERMA (07:28)
[2023-11-14] MEDS: Ketorolac Tromethamine 30 MG/ML VIAL IM (07:35)
--- NOTE | 2023-11-14 07:41 | ED_ITS ---
HPI - Back Pain/Injury General Chief Complaint: Extremity Injury, Lower Stated Complaint: right side muscle strain Time Seen by Provider: 11/14/23 07:05 Source: patient Mode of arrival: ambulatory Limitations: no limitations History of Present Illness HPI Narrative: 53 y/o female with history of sciatica, anxiety, asthma, psoriatic arthritis, fibromyalgia who presents to the ER for evaluation of right-sided middle back spasm that started 3 days ago and has been worsening. Patient denies any trauma or injury but notice a spasm and tightening pain in her right middle/lower back that was worse with movement 3 days ago. It was severe last night and she couldn't sleep. She has been trying massage, Epsom salt soaks, heat and ice with minimal relief. She denies any radiation of the pain. She denies any chest pain, shortness on breath, abdominal pain. She denies any urinary symptoms. MD elicited complaint: back pain Pertinent past history: prior back pain Onset (ago): day(s) (3) Timing: progressively worsening Severity: severe Similar Symptoms Previously: Yes Quality: aching and spasming Location: right flank Radiation: none Exacerbating factors: movement Relieving factors: immobilization Context: unknown Associated symptoms: denies other symptoms Related Data Home Medications ?Medication ?Instructions ?Recorded ?Confirmed sumatriptan succinate 100 mg tablet See Rx Instructions PO .COMPLEX 04/19/20 07/04/23 dextroamphetamine-amphetamine 20 1 tab PO BID 05/04/23 07/04/23 mg tablet sulfasalazine 500 mg tablet 1 g PO BID 07/04/23 07/04/23 Previous Rx's ?Medication ?Instructions ?Recorded ondansetron 4 mg disintegrating 4 mg PO Q6-8H PRN nausea and 10/24/22 tablet vomiting #7 tabs diclofenac sodium 1 % topical gel 2 g topical QID #100 grams 05/04/23 (Arthritis Pain (diclofenac)) meloxicam 15 mg tablet 15 mg PO DAILY PRN pain #30 tabs 05/04/23 cyclobenzaprine 10 mg tablet 10 mg PO TID PRN muscle spasm #10 11/14/23 tabs lidocaine 5 % topical patch 1 patch topical DAILY #15 ea 11/14/23 Allergies Allergy/AdvReac Type Severity Reaction Status Date / Time morphine Allergy itchy Verified 11/14/23 06:56 Review of Systems Review of Systems: Yes all other systems are reviewed and are negative [facility] Past Medical History Medical History Rash Eczema Left ankle swelling Vitamin B12 deficiency Vitamin D deficiency Hypoglycemia Annual physical exam Normal Pap smear Irritable bowel syndrome with constipation PTSD (post-traumatic stress disorder) Degenerative disc disease, lumbar Depression Anxiety Migraine Attention deficit hyperactivity disorder Surgical History H/O colonoscopy History of tonsillectomy Family History Family History Father No problems noted. Mother No problems noted. Social History Social History Household Members Other:: lives with children 17 and 21-year-old, on disability for PTSD Housing: Apartment Patient Tobacco Use Status: Never used Tobacco Smoked in Last 30 Days: No e-Cigarette/Vaping Use: Never Used Use of substances other than those prescribed or required for medical reasons: No Advance Directives: No Advance Directives Information Provided: No Do you have a plan to hurt others: No Plan Current occupational status: disabled Cognitive needs: No Hearing needs: No Vision needs: Yes Physical Exam Vital Signs: Vital Signs: Last Vital Signs Temp 98.1 F 11/14/23 06:48 Pulse 82 11/14/23 06:48 Resp 16 11/14/23 06:48 BP 162/90 H 11/14/23 06:48 Pulse Ox 100 11/14/23 06:48 O2 Del Method Room Air 11/14/23 06:48 BMI result Body Mass Index 23.9 Appearance: Alert. Oriented X3. No acute distress. HEENT: Normal external inspection CVS: Normal heart rate and rhythm. Pulses normal. Respiratory: No respiratory distress. Breath sounds normal. Abdomen: Soft and nontender. +BS x4 Back: Normal inspection. There is soft tissue tenderness and significant palpable spasm in the middle thoracic and upper lumbar area on the right side. Positive CVA tenderness although the soft tissues are in spasm over this area. Nontender and soft soft tissues on the left side of the back. No midline tenderness. Patient moves with slow movements. Skin: Skin warm and dry. Normal skin color. Normal skin turgor. No rashes. Extremities: No lower extremity edema. No joint swelling. Neuro/psych: Oriented X 3. No motor deficit. No sensory deficit. CN II-XII intact. Normal speech and cognition. Slow but steady gait. Medications Administered Discontinued Medications Generic Name Dose Route Start Last Admin Trade Name Lina PRN Reason Stop Dose Admin Acetaminophen 975 mg 11/14/23 07:18 11/14/23 07:27 Acetaminophen 325 Mg Tablet PO 11/14/23 07:19 975 mg ONCE ONE Administration Ketorolac Tromethamine 30 mg 11/14/23 07:18 11/14/23 07:35 Ketorolac Tromethamine 30 Mg/Ml Vial IM 11/14/23 07:19 30 mg ONCE ONE Administration Lidocaine 1 patch 11/14/23 07:19 11/14/23 07:28 Lidocaine 4 % Patch Adh..Patch TRANSDERMA 11/14/23 07:20 1 patch ONCE ONE Administration Protocol Medical Decision Making Medical Decision Making MDM Narrative: 53-year-old female with history of fibromyalgia, psoriatic arthritis, asthma, anxiety who presents to the ER for evaluation of a worsening muscle spasm in the right side of her middle and lower back. No urinary symptoms. She has significant muscle spasm palpable on examination with slow movements on arrival to the ER. Urinalysis today is negative for blood and infection. We discussed treatment of muscle strain and spasms including muscle relaxers and anti-inflammatories. She would prefer to take a muscle relaxer at home rather than stay in the emergency department. She did drive herself here. Will send prescription for muscle relaxer and lidocaine patches to her pharmacy. She was given return precautions and encourage follow-up with her primary care doctor for further management. Differential Diagnosis Differential Diagnoses: The differential diagnosis associated with the present ation includes Muscle strain and spasm, referred pain from acute cholecystitis or biliary colic, renal colic, kidney stone, pyelonephritis, UTI Admission/Observation Consideration of admission/observation: Escalation of care including admission/observation considered Lab Data [facility] Lab Attestation statement: I reviewed the patient's lab results. No evidence of infection, no microscopic hematuria Labs: Lab Results 11/14/23 Range/Units 08:06 Urine Color Yellow Urine Appearance Clear Urine pH 7.5 (5.0-9.0) Ur Specific [place] <= 1.005 (1.005-1.025) Urine Protein Negative (Neg-Trace) mg/dL Urine Glucose (UA) Negative (Negative) mg/dL Urine Ketones Negative (Negative) mg/dL Urine Blood Negative (Negative) Urine Nitrite Negative (Negative) Ur Leukocyte Esterase Negative (Negative) External Record Review External record reviewed: Outpatient record, Prior outpatient labs and Prior outpatient radiology Tests considered The following testing was considered but not selected: CT scan of the abdomen was considered however low clinical suspicion for urologic etiology Prescription Management I considered prescription management with: Pain Medication Critical Care Time Critical Care Time Critical Care Time: No Discharge Plan Discharge Clinical Impression: Muscle spasm Patient Disposition: Home, Self-Care Instructions: Muscle Spasm (ED) Additional Instructions: Your urine test today was normal. Your pain is due to muscle strain and spasm. No bending, lifting or twisting. Use ice several times per day for 20 minutes at a time for the next 48 hours and then change to heat. Follow up with your Primary Care Doctor this week. Take the prescribed muscle relaxer as needed for muscle spasm. Use the topical lidocaine patch as directed. Recommend gentle massage and stretching, your back has significant spasm. This will improve with time, medications, heat, massage. If you develop new or worsening symptoms call 911 or come back to the ER for further evaluation. Prescriptions: New cyclobenzaprine 10 mg tablet 10 mg PO TID PRN (Reason: muscle spasm) Qty: 10 0RF lidocaine 5 % adhesive patch,medicated 1 patch topical DAILY Qty: 15 0RF Rx Instructions: leave on most painful area for up to 12 hrs No Action ondansetron 4 mg tablet,disintegrating 4 mg PO Q6-8H PRN (Reason: nausea and vomiting) Qty: 7 0RF sumatriptan succinate 100 mg tablet See Rx Instructions PO .COMPLEX Rx Instructions: take 1 tab at onset of headache; if no relief, may repeat 1 tab after at least 2 hrs; max = 2 tabs/24 hrs PO sulfasalazine 500 mg tablet 1 g PO BID dextroamphetamine-amphetamine 20 mg tablet 1 tab PO BID meloxicam 15 mg tablet 15 mg PO DAILY PRN (Reason: pain) Qty: 30 3RF diclofenac sodium [Arthritis Pain (diclofenac)] 1 % gel 2 g topical QID Qty: 100 2RF Rx Instructions: apply to single elbow, wrist or hand; for hand includes palm/fingers/back of hand Print Language: Kiswahili
[2023-11-14 08:13] LABS: Appearance Urine Clear; Color Urine Yellow; Glucose Urine UA Negative (Negative); Leukocyte Esterase Urine Negative (Negative); Nitrite Urine Negative (Negative); PH 7.5 (5.0-9.0); Specific Gravity - Urine <= 1.005 (1.005-1.025); Urine Blood Negative (Negative); Urine Ketones Negative (Negative); Urine Protein Negative (Neg-Trace)
--- NOTE | 2023-11-14 08:30 | PC.NURSE ---
discharge paperwork given to pt. pt now stating she is cold and can't leave because she is in too much pain. pt trying to figure out ride home since she drove herself here.
[2023-11-14 09:49] VITALS: BP 162/90; PULSE 82; RESP 16; TEMP 36.7; O2SAT 100
== END 2023-11-14 09:50 | disposition home or self-care (01) ==
PROVIDERS: Physician Assistant; Emergency Provider Emergency Medicine; PCP Internal Medicine
DX: M62.830 Muscle spasm of back (principal); M54.50 Low back pain, unspecified; M79.7 Fibromyalgia; Z79.899 Other long term (current) drug therapy
CPT/HCPCS: 81003; 96372; 99284; J1885

== ENCOUNTER 2023-12-12 09:40 | Outpatient (AMB) | payer OTHER, SELFPAY ==
[2023-12-12 09:46] VITALS: BP 142/70; PULSE 83; O2SAT 97; BMI 24.3
--- NOTE | 2023-12-12 09:46 | A.OFFVIS_ITS ---
Vital Signs 12/12/23 09:46 Height 5 ft 4 in Weight 141 lb 8.588 oz BMI 24.3 BP 142/70 H Blood Pressure Location Rt brachial Position Sitting Pulse 83 Pulse Source Pulse Oximeter Pulse Oximetry (%) 97 Oxygen Delivery Method Room Air Intake Visit Reasons: PsA/CM Intake Note: Reports herniated C6 feels left sided neck pain and vibration States this is better with prednisone, has noticed an increased since being off the prednisone. 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 Accompanied by: Self / Same As Patient Allergies morphine Allergy (Verified 12/12/23 10:02) itchy Medication List - Last Reconciled 12/12/23 by Narendra Allen MD cyclobenzaprine 10 mg PO TID PRN dextroamphetamine-amphetamine 20 mg 1 tab PO BID diclofenac sodium 1% (Arthritis Pain (diclofenac)) 2 grams topical QID lidocaine 5% 1 patch topical DAILY meloxicam 15 mg PO DAILY PRN ondansetron 4 mg PO Q6-8H PRN sulfasalazine 1 g PO BID sumatriptan succinate take 1 tab at onset of headache; if no relief, may repeat 1 tab after at least 2 hrs; max = 2 tabs/24 hrs PO HPI Comments Details: 53-year-old patient with psoriatic arthritis returns for follow-up. She states that recently she was evaluated by neurologist due to left-sided neck pain associated with vibratory zinging sensation in her left shoulder, jaw, left side of her face. She stated that an MRI was done which showed a pinched nerve at C6 , She was prescribed prednisone for 14 days with some relief. But states that she continues to have the same pain. She has not been taking the sulfasalazine regularly. Worried about side effects. She she has been taking the meloxicam regularly but did not take it while taking the prednisone. She will be going back to her neurologist soon and she states that she might be referred to a spine surgeon. Over the last few months she has been having episodes of urinary urgency and a few accidents. She states that her OBGYN is changing offices and she is unable to get an appointment. Initial history: This is a 51-year-old female with a past medical history of ADHD, degenerative disc disease of the spine, depression, IBS, migraines presents for evaluation of right hand pain. Patient started noticing that her right hand fingers have been changing, she has some knobby deformities. However she also has significant pain swelling and redness at her right 5th MCP, she does not recall any trauma to the area. She has received intra-articular steroid injections for her hands in the past with short-lived relief. She went to the urgent care earlier this month and she was prescribed meloxicam 7.5 mg daily which only provides little relief. She also applies diclofenac gel which does not help In January of last year she developed left ankle pain and swelling which was treated with Voltaren gel. This took about 1-2 months to resolve. She does not recall any trauma to the left ankle. She has multiple other complaints including fatigue, weakness, dry eyes, mouth sores, nausea, headache, dizziness. She is complaining of bones the back of her hand behind her ears nontender. [facility] Medical History Rash Eczema Left ankle swelling Vitamin B12 deficiency Vitamin D deficiency Hypoglycemia Annual physical exam Normal Pap smear Irritable bowel syndrome with constipation PTSD (post-traumatic stress disorder) Degenerative disc disease, lumbar Depression Anxiety Migraine Attention deficit hyperactivity disorder Surgical History H/O colonoscopy History of tonsillectomy Family History Father No problems noted. Mother No problems noted. Social History Household Members Other:: lives with children 17 and 21-year-old, on disability for PTSD Housing: Apartment Patient Tobacco Use Status: Never used Tobacco e-Cigarette/Vaping Use: Never Used Current occupational status: disabled Cognitive needs: No Hearing needs: No Vision needs: Yes Review of Systems ENT Reports neck pain Musc Reports arthralgias, Reports neck pain, Reports radiating pain into limb and Reports stiffness Physical Exam Vital Signs: Last Vital Signs Pulse 83 12/12/23 09:46 BP 142/70 H 12/12/23 09:46 Pulse Ox 97 12/12/23 09:46 Oxygen Delivery Method Room Air 12/12/23 09:46 BMI result Body Mass Index 24.3 Const General: cooperative, healthy appearing and anxious Nutritional Appearance: average body habitus Orientation/consciousness: patient oriented x3 Limitations: no limitations Resp Effort & Inspection: normal respiratory effort and able to speak in complete sentences Neuro General: patient oriented x3 Extrem Other: osteoarthritic changes of both hands worse on the right hand with Heberden's and Ebenezer's nodes No active synovitis today Mild flexion contracture of right 5th PIP No swelling or tenderness in both ankles and feet. No MTP tenderness and negative MTP squeeze test bilaterally Normal nailfold capillaroscopy No ankle swelling edema or warmth Results Reviewed Results Reviewed: XR/XR sacroiliac joint min 3V IMPRESSION: 1.? Unremarkable SI joints. 2.? There are 2 cages at the L5-S1 disc level for fusion. ? 3.? Unremarkable left hand/wrist exam ?MR/MR hand RT wo con 04/2022 IMPRESSION: Fifth metacarpal phalangeal joint effusion with marrow edema in the 5th metacarpal head and base of the fifth proximal phalanx as well as circumferential soft tissue edema. Additionally there is attenuation and abnormal signal of the collateral ligaments. Findings could represent an infectious or inflammatory arthropathy. Small calcifications on the prior radiographs could indicate gout arthritis in the appropriate setting. Alternatively, findings could indicate posttraumatic changes in the setting of recent injury. ? Mild 5th flexor tenosynovitis without a transverse tendon tear or tendon retraction. Assessment & Plan Assessment & Plan (1) Psoriatic arthritis: Comment: ELIESER 04/30 effective, patient not compliant regularly Code(s): L40.50 - Arthropathic psoriasis, unspecified Category: Medical Plan: This is a 53-year-old female with psoriatic arthritis (seronegative spondyloarthropathy manifested by right 5th MCP arthritis and 5th flexor tenosynovitis, recurrent left Achillis tendonitis, HLA B27 negative). Patient is not compliant with sulfasalazine worried about side effects. I reassured her about side effects of sulfasalazine. Advised patient to restarted. She has been taking meloxicam regularly however. I do not see any active synovitis on exam. Labs before next visit in 3 months (2) Encounter for monitoring sulfasalazine therapy: Code(s): Z51.81 - Encounter for therapeutic drug level monitoring; Z79.899 - Other long term care administrator (current) drug therapy Category: Medical Plan: Monitor safety labs (3) Urinary urgency: Code(s): R39.15 - Urgency of urination Category: Medical Plan: Referred to urologist (4) Cervical radiculopathy: Code(s): M54.12 - Radiculopathy, cervical region Category: Medical Plan: Follow-up with neurologist Plan I spent 27 minutes reviewing patient's chart, evaluating patient, ordering diagnostic workup, counseling patient and documenting in the chart Orders: Orders C Reactive Protein 3 Months L40.50 - Arthropathic psoriasis, unspecified, Z51.81 - Encounter for therapeutic drug level monitoring, Z79.899 - Other long term care administrator (current) drug therapy Erythrocyte Sedimentation Rate 3 Months L40.50 - Arthropathic psoriasis, unspe cified, Z51.81 - Encounter for therapeutic drug level monitoring, Z79.899 - Other long term care administrator (current) drug therapy Complete Blood Count Auto Diff 3 Months L40.50 - Arthropathic psoriasis, unspecified, Z51.81 - Encounter for therapeutic drug level monitoring, Z79.899 - Other correction (current) drug therapy Comprehensive Met. Panel 3 Months L40.50 - Arthropathic psoriasis, unspecified, Z51.81 - Encounter for therapeutic drug level monitoring, Z79.899 - Other correction (current) drug therapy Referrals Urology Referral R39.15 - Urgency of urination Coding Level of Care Code Est Pt Level 4 (90264) Diagnoses Psoriatic arthritis L40.50 Encounter for monitoring sulfasalazine therapy Z51.81; Z79.899 Urinary urgency R39.15 Cervical radiculopathy M54.12
== END 2023-12-12 10:33 | disposition home or self-care (01) ==
PROVIDERS: PCP Internal Medicine; Visit Provider Student in an Organized Health Care Education/Training Program
DX: L40.50 Arthropathic psoriasis, unspecified (principal); Z51.81 Encounter for therapeutic drug level monitoring; Z79.899 Other long term (current) drug therapy; R39.15 Urgency of urination; M54.12 Radiculopathy, cervical region
CPT/HCPCS: 99214

== ENCOUNTER → 2023-12-12 09:40 | Outpatient (BNVA) | payer OTHER, SELFPAY | PROVIDERS: PCP Internal Medicine; Visit Provider Student in an Organized Health Care Education/Training Program | DX: L40.50 Arthropathic psoriasis, unspecified (principal); M54.12 Radiculopathy, cervical region; R39.15 Urgency of urination; Z51.81 Encounter for therapeutic drug level monitoring; Z79.899 Other long term (current) drug therapy | CPT/HCPCS: 99212 ==

== ENCOUNTER 2024-01-25 09:28 | Outpatient (AMB) | payer OTHER, SELFPAY ==
--- NOTE | 2024-01-25 09:47 | A.SPINEOV_ITS ---
Intake Visit Reasons: Neck pain Intake Note: Ms. Hernandez is here today c/o neck pain. 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 HPI: This 53-year-old female developed left-sided neck pain radiating to the left shoulder and left side of her face with intermittent numbness. The pain is constantly present with flare-ups. She can not tell what makes the pain worse. Pain wakes her up at night. She sleeps with certain pillows trying to alleviate the pain. She drops objects with her hands. She denies weakness or numbness. She lives alone and it is hard for her to travel to physical therapy. She is doing home exercises without success. She had tried injections in the neck and lumbar spine in the past for other reasons. She was prescribed prednisone which relieved all the symptoms. PMH: PTSD, arthritis, lumbar fusion in 2016 Medications: Cyclobenzaprine Allergies: Dextroamphetamine amphetamine, diclofenac gel, meloxicam, sulfasalazine Social history: Nonsmoker. Single. Four kids. Physical Exam: Pleasant female. Spurling towards the right side produces pain on the left side of the neck. Neurological exam is intact for motor sensation or reflexes. No pathological reflexes. Radiological Studies: MRI done at [facility] on 11/08/2023 shows severe left C4 foraminal stenosis. In addition there is cervical degenerative disc disease C5- C6 with moderate right C6 foraminal stenosis. Impression/Plan: This patient is suffering from left-sided neck pain in a radicular pattern. This may be coming from the left C4 nerve root compression. I would like to refer her for a diagnostic C4 nerve root block. She will return to my office after the procedures done. Thank you for allowing me to participate in your patients care. total time spent was 50 minutes in counseling ,coordination of plan, personal review of imaging, surgical decision making and subsequent plan Carmelo Pruitt MD, PhD Spine Fellowship Trained Neurosurgeon Director, [facility] Orders: Referrals Pain Management Referral M54.12 - Radiculopathy, cervical region Coding Level of Care Code New Pt Level 4 (88876) Diagnoses Cervical radiculopathy M54.12
== END 2024-01-25 10:25 | disposition home or self-care (01) ==
PROVIDERS: PCP Internal Medicine; Referring Provider Psychiatry & Neurology Neurology; Visit Provider Neurological Surgery
DX: M54.12 Radiculopathy, cervical region (principal)
CPT/HCPCS: 99204

== ENCOUNTER → 2024-01-25 09:28 | Outpatient (BNVA) | payer OTHER, SELFPAY | PROVIDERS: PCP Internal Medicine; Visit Provider Neurological Surgery | DX: M54.12 Radiculopathy, cervical region (principal) | CPT/HCPCS: 99202 ==

== ENCOUNTER 2024-02-07 11:03 | Outpatient (AMB) | payer OTHER, SELFPAY ==
--- NOTE | 2024-02-07 11:04 | A.OFFVIS_ITS ---
Intake Visit Reasons: urgency of urination(SET) Intake Note: Patient is present for URGENCY OF URINATION Urology Medication:NONE Antibiotic Allergy:NONE Blood Thinner:NONE Appointment Specialist Required: No Allergies morphine Allergy (Verified 02/07/24 11:05) itchy HPI Comments Details: Avelina is a 53 year old female who is here for evaluation for urinary incontinence, she complains of urinary urgency. H/O PTSD, DDD, lumbar surgery, complains of neck pain. Discussed pelvic floor physical therapy. Evaluate with renal ultrasound. [facility] Medical History Rash Eczema Left ankle swelling Vitamin B12 deficiency Vitamin D deficiency Hypoglycemia Annual physical exam Normal Pap smear Irritable bowel syndrome with constipation PTSD (post-traumatic stress disorder) Degenerative disc disease, lumbar Depression Anxiety Migraine Attention deficit hyperactivity disorder Surgical History H/O colonoscopy History of tonsillectomy Family History Father No problems noted. Mother No problems noted. Social History Household Members Other:: lives with children 17 and 21-year-old, on disability for PTSD Housing: Apartment Patient Tobacco Use Status: Never used Tobacco e-Cigarette/Vaping Use: Never Used Current occupational status: disabled Cognitive needs: No Hearing needs: No Vision needs: Yes Review of Systems Const All systems reviewed & are unremarkable except as noted in HPI and below Reports no additional complaints Eyes Reports no additional complaints ENT Reports no additional complaints Card Reports no additional complaints Resp Reports no additional complaints GI Reports no additional complaints Reports as per HPI Musc Reports no additional complaints Skin/Breast Reports system reviewed and no additional complaints, except as documented Neuro Reports no additional complaints Psych Reports no additional complaints Endo Reports no additional complaints Bernabe/Lymph Reports no additional complaints Aller/Immun Reports no additional complaints Physical Exam Const General: cooperative, healthy appearing and no acute distress Orientation/consciousness: patient oriented x3 HEENT Head: Yes normal to inspection, Yes normocephalic and Yes atraumatic Eyes Conjunctivae: conjunctivae normal Neck Neck: Yes normal visual inspection and Yes trachea midline Chest Chest palpation & inspection: normal inspection of the chest Resp Effort & Inspection: normal respiratory effort Cardio Rate: regular rate GI Inspection: Yes normal to inspection Palpation (GI): Soft to palpation Neuro General: patient oriented x3 Extrem General: No edema Psych Appearance: grossly normal Results AMB Urinalysis, Automated UA Leukoctes 0 Kiarra/uL Last Edit by MASTER Biggs on 02/07/24 11:15 UA Nitrite Negative Last Edit by Anat Cope CCM on 02/07/24 11:15 UA Urobilinogen 0.2 mg/dL Last Edit by Anat Cope CCM on 02/07/24 11:1 5 UA Protein 15 mg/dL Last Edit by Anat Cope [facility] on 02/07/24 11:15 UA pH 5.5 Last Edit by Anat Cope [facility] on 02/07/24 11:15 UA Blood 0 Wu/uL Last Edit by Anat Cope CCM on 02/07/24 11:15 UA Specific [place] 1.025 Last Edit by Anat Cope CCM on 02/07/24 11: 15 UA Ketone Negative Last Edit by Anat Cope CCM on 02/07/24 11:15 UA Bilirubin 0 mg/dL Last Edit by Anat Cope CCM on 02/07/24 11:15 UA Glucose 0 mg/dL Last Edit by Anat Cope [facility] on 02/07/24 11:15 Results Reviewed Results Reviewed: Laboratory Last Values Urine pH (Auto) 5.5 02/07/24 11:09 Specific [place] (Auto) 1.025 02/07/24 11:09 Urine Protein (Auto) 15 mg/dL 02/07/24 11:09 Glucose (UA)(Auto) 0 mg/dL 02/07/24 11:09 Urine Ketones (Auto) Negative 02/07/24 11:09 Urine Blood (Auto) 0 Wu/uL 02/07/24 11:09 Urine Nitrite (Auto) Negative 02/07/24 11:09 Urine Bilirubin (Auto) 0 mg/dL 02/07/24 11:09 Urine Urobilinogen (Auto) 0.2 mg/dL 02/07/24 11:09 Leukocyte Esterase (Auto) 0 Kiarra/uL 02/07/24 11:09 Assessment & Plan Assessment & Plan (1) Urinary urgency: Code(s): R39.15 - Urgency of urination Category: Medical (2) Cervical radiculopathy: Code(s): M54.12 - Radiculopathy, cervical region Category: Medical Plan US renal/bladder, refer to Pelvic floor PT. Orders: Orders AMB Urinalysis Automated 02/07/24 Z13.9 - Encounter for screening, unspecified US retroperitoneal comp 02/07/24 R39.15 - Urgency of urination, M54.12 - Radiculopathy, cervical region Patient Instructions: The patient had an opportunity to ask questions regarding treatment plan. The patient expressed understanding and agreement with the above treatment plan. The patient is aware they should contact our office by phone for worsening of their current condition or the appearance of new symptoms. Compliance is encouraged with any medications and followup testing that is ordered. It is a privilege to be allowed the opportunity to participate in the urologic care of your patient. If you have any questions or concerns regarding treatment for the above conditions please do not hesitate to contact me. The office telephone contact is [phone]. This note is constructed in part using voice recognition software. While every effort has been made to ensure accuracy electroencephalographic technician errors may have been included. Yours sincerely, Mar Marks MD Coding Level of Care Code New Pt Level 4 (97485) Diagnoses Urinary urgency R39.15 Cervical radiculopathy M54.12
== END 2024-02-07 12:05 | disposition home or self-care (01) ==
PROVIDERS: PCP Internal Medicine; Visit Provider Urology
DX: R39.15 Urgency of urination (principal); M54.12 Radiculopathy, cervical region
CPT/HCPCS: 99204

== ENCOUNTER → 2024-02-07 11:03 | Outpatient (BNVA) | payer OTHER, SELFPAY | PROVIDERS: PCP Internal Medicine; Visit Provider Urology | DX: R39.15 Urgency of urination (principal); M54.12 Radiculopathy, cervical region | CPT/HCPCS: 81003; 99202 ==

== ENCOUNTER 2024-02-15 09:58 | Outpatient (REF) | payer OTHER, SELFPAY ==
--- NOTE | ~2024-02-15 | US_ITS ---
EXAMINATION: US RETROPERITONEAL COMPLETE (RENAL) CLINICAL INFORMATION: Urgency of urination. COMPARISON: Ultrasound abdomen October 24, 2022. CT abdomen and pelvis January 24, 2017. TECHNIQUE: Real-time imaging of the kidneys and bladder. FINDINGS: RIGHT KIDNEY: 10.6 x 3.8 x 4.5 cm (SAG x AP x TRV). The kidney is normal in size, contour, and echogenicity. Renal cortical thickness is normal. No calculi or focal parenchymal lesions. No hydronephrosis. LEFT KIDNEY: 11.3 x 4.3 x 4.1 cm (SAG x AP x TRV). The kidney is normal in size, contour, and echogenicity. Renal cortical thickness is normal. No calculi or focal parenchymal lesions. No hydronephrosis. BLADDER: Well distended and normal. Bilateral ureteral jets are demonstrated. Prevoid bladder volume is 264.0 mL. Postvoid bladder volume is 14.9 mL. ADDITIONAL FINDINGS: Incidentally noted is a 3 cm left ovarian cyst. Gallstones are also appreciated within otherwise unremarkable appearing gallbladder. US/US retroperitoneal comp IMPRESSION: 1. Unremarkable sonographic imaging of the kidneys and bladder. Specifically, no renal calculi or hydronephrosis of either kidney. 2. Incidentally noted is a 3 cm left ovarian cyst. 3. Cholelithiasis. Electronically signed by: Barrett Landry MD 03/08/2024 09:41 AM EDT
== END 2024-02-15 09:59 | disposition home or self-care (01) ==
LOC: HO.US 09:58
PROVIDERS: PCP Internal Medicine; Visit Provider Urology
DX: M54.12 Radiculopathy, cervical region (principal); R39.15 Urgency of urination
CPT/HCPCS: 76770

== ENCOUNTER 2024-02-21 07:14 | Outpatient (REF) | payer OTHER, SELFPAY | END 2024-02-21 07:15 | disposition home or self-care (01) | LOC: CF 07:14 | PROVIDERS: Visit Provider Internal Medicine | DX: Z13.89 Encounter for screening for other disorder (principal) | CPT/HCPCS: Q9967 ==

== ENCOUNTER 2024-03-21 19:27 | Emergency (ER) | payer OTHER, SELFPAY ==
[2024-03-21 20:11] VITALS: BP 150/91; PULSE 83; RESP 18; TEMP 36.9; O2SAT 100; BMI 23.6
[2024-03-21 21:26] LABS: MANUAL DIFF FLAG NO
[2024-03-21 21:27] LABS: Basophils Percent Auto 0.2 % (0-2); Eosinophils Percent Auto 0.3 % (0-4); Hematocrit 39.3 % (37.0-47.0); Hemoglobin 13.4 g/dl (12.0-16.0); Imm Gran Abs Auto 0.03 X10*3/uL (0.00-0.03); Imm Gran Pct Auto 0.3 % (0.0-0.4); Lymphocytes Absolute Auto 0.9 X10*3/uL (1.2-4.9); Lymphocytes Percent Auto 8.4 % (20-40); Mean Corpuscular HGB Conc 34.1 g/dl (31.0-35.0); Mean Corpuscular Hemoglobin 29.9 pg (27.0-33.0); Mean Corpuscular Volume 87.7 fL (80.0-98.0); Mean Platelet Volume 11.2 fL (9.4-12.3); Monocytes Absolute Auto 0.9 X10*3/uL (0.1-1.2); Monocytes Percent Auto 8.2 % (2-11); Neutrophils Absolute Auto 8.8 x10*3/uL (2.0-8.3); Neutrophils Percent Auto 82.6 % (45-73); Platelet Count 167 X10*3/uL (160-400); Red Blood Count 4.48 X10*6/uL (4.20-5.50); Red Cell Distribution Width 13.2 % (11.0-16.0); White Blood Count 10.7 X10*3/uL (4.8-10.8)
[2024-03-21 21:44] LABS: Alanine Aminotransferase 10 U/L (0-31); Alkaline Phosphatase 87 U/L (39-117); Anion Gap 11 (12-20); Aspartate Amino Transferase 13 U/L (5-31); Bilirubin Total 0.4 mg/dL (0.0-1.0); Blood Urea Nitrogen 11 mg/dL (9-16); Calcium 9.2 mg/dL (8.4-10.2); Carbon Dioxide 27 mmol/L (22-29); Chloride 107 mmol/L (96-108); Creatinine Clr Calc Pharmacy 75.6; Estimated Glomerular Filt Rate > 60; Glucose Random 97 mg/dL (60-115); Potassium 3.7 mmol/L (3.3-5.1); Sodium 141 mmol/L (135-145); Total Protein 6.6 g/dL (6.5-8.0)
[2024-03-21] MEDS: Acetaminophen 325 MG TABLET 975 MG PO (21:53)
== END 2024-03-22 01:40 | disposition left against medical advice (07) ==
PROVIDERS: Physician Assistant Medical; Emergency Provider Emergency Medicine; PCP Internal Medicine
DX: R68.84 Jaw pain (principal); K08.89 Other specified disorders of teeth and supporting structures; Z53.21 Procedure and treatment not carried out due to patient leaving prior to being seen by health care provider
CPT/HCPCS: 36415; 80053; 85025; 99281; 99282

== ENCOUNTER 2024-04-03 10:45 | Outpatient (AMB) | payer OTHER, SELFPAY ==
--- NOTE | 2024-04-03 10:35 | MHC.OFFVIS ---
Intake Visit Reasons: 7w/U/S Intake Note: Pt presents to the office today as a telehealth visit for a 7w/US. Allergies morphine Allergy (Verified 04/04/24 15:00) itchy HPI Comments Details: 04/03/24--discussed renal/bladder ultrasound 02/15/24-- kidneys and bladder- no renal calculi or hydronephrosis of either kidney. Incidentally noted is a 3 cm left ovarian cyst. The patient has a pinched nerve in the C4 region she has symptoms including vibrations and pain. She is having urinary symptoms including incontinence. She has been referred to pelvic floor physical therapy. Left ovarian cyst - We can fax US results to patient's ob gyn physician assistant Dr. Dexter Lara phone [phone] ([place]) Review of chart: 02/07/24--Avelina is a 53 year old female who is here for evaluation for urinary incontinence, she complains of urinary urgency. H/O PTSD, DDD, lumbar surgery, complains of neck pain. Discussed pelvic floor physical therapy. Evaluate with renal ultrasound. [facility] Medical History Rash Eczema Left ankle swelling Vitamin B12 deficiency Vitamin D deficiency Hypoglycemia Annual physical exam Normal Pap smear Irritable bowel syndrome with constipation PTSD (post-traumatic stress disorder) Degenerative disc disease, lumbar Depression Anxiety Migraine Attention deficit hyperactivity disorder Surgical History H/O colonoscopy History of tonsillectomy Family History Father No problems noted. Mother No problems noted. Social History Household Members Other:: lives with children 17 and 21-year-old, on disability for PTSD Housing: Apartment Patient Tobacco Use Status: Never used Tobacco e-Cigarette/Vaping Use: Never Used Current occupational status: disabled Cognitive needs: No Hearing needs: No Vision needs: Yes Review of Systems Const All systems reviewed & are unremarkable except as noted in HPI and below Reports no additional complaints Eyes Reports no additional complaints ENT Reports no additional complaints Card Reports no additional complaints Resp Reports no additional complaints GI Reports no additional complaints Reports as per HPI Musc Reports no additional complaints Skin/Breast Reports system reviewed and no additional complaints, except as documented Neuro Reports no additional complaints Psych Reports no additional complaints Endo Reports no additional complaints Bernabe/Lymph Reports no additional complaints Aller/Immun Reports no additional complaints Telehealth Telehealth Telehealth Platform: [employer] Location of provider rendering services: practice address Location of patient: address on file Patient Identification confirmed using: Name, : Yes Telehealth method: voice only Patient verbally consented to treatment: Yes Patient verbally consented to billing insurance company: Yes Patient informed of any privacy concerns related to visit: Yes Minutes spent on Phone/Video with Pt.: 18 Results Reviewed Results Reviewed: Date of Service: 02/15/24 US RETROPERITONEAL COMPLETE (RENAL) CLINICAL INFORMATION: Urgency of urination. COMPARISON: Ultrasound abdomen October 24, 2022. CT abdomen and pelvis January 24, 2017. TECHNIQUE: Real-time imaging of the kidneys and bladder. FINDINGS: RIGHT KIDNEY: 10.6 x 3.8 x 4.5 cm (SAG x AP x TRV). The kidney is normal in size, contour, and echogenicity. Renal cortical thickness is normal. No calculi or focal parenchymal lesions. No hydronephrosis. LEFT KIDNEY: 11.3 x 4.3 x 4.1 cm (SAG x AP x TRV). The kidney is normal in size, contour, and echogenicity. Renal cortical thickness is normal. No calculi or focal parenchymal lesions. No hydronephrosis. BLADDER: Well distended and normal. Bilateral ureteral jets are demonstrated. Prevoid bladder volume is 264.0 mL. Postvoid bladder volume is 14.9 mL. ADDITIONAL FINDINGS: Incidentally noted is a 3 cm left ovarian cyst. Gallstones are also appreciated within otherwise unremarkable appearing gallbladder. IMPRESSION: 1. Unremarkable sonographic imaging of the kidneys and bladder. Specifically, no renal calculi or hydronephrosis of either kidney. 2. Incidentally noted is a 3 cm left ovarian cyst. 3. Cholelithiasis. Assessment & Plan Assessment & Plan (1) Urinary urgency: Code(s): R39.15 - Urgency of urination Category: Medical (2) Cervical radiculopathy: Code(s): M54.12 - Radiculopathy, cervical region Category: Medical Plan refer to Pelvic floor PT. Patient Instructions: The patient had an opportunity to ask questions regarding treatment plan. The patient expressed understanding and agreement with the above treatment plan. The patient is aware they should contact our office by phone for worsening of their current condition or the appearance of new symptoms. Compliance is encouraged with any medications and followup testing that is ordered. It is a privilege to be allowed the opportunity to participate in the urologic care of your patient. If you have any questions or concerns regarding treatment for the above conditions please do not hesitate to contact me. The office telephone contact is [phone]. This note is constructed in part using voice recognition software. While every effort has been made to ensure accuracy equipment service engineer errors may have been included. Yours sincerely, Mar Marks MD Coding Level of Care Code Tele Est Pt Level 3 (28345) Diagnoses Urinary urgency R39.15 Cervical radiculopathy M54.12
== END 2024-04-03 11:50 | disposition home or self-care (01) ==
LOC: HO.HUSH 10:45
PROVIDERS: PCP Internal Medicine; Visit Provider Urology
DX: R39.15 Urgency of urination (principal); M54.12 Radiculopathy, cervical region
CPT/HCPCS: 99442

== ENCOUNTER → 2024-04-03 10:45 | Outpatient (BNVA) | payer OTHER, SELFPAY | PROVIDERS: PCP Internal Medicine; Visit Provider Urology ==

== ENCOUNTER 2024-04-04 14:51 | Outpatient (AMB) | payer OTHER, SELFPAY ==
--- NOTE | 2024-04-04 14:52 | HO.SPINEOV ---
Intake Visit Reasons: Increasing pain and worsening symptoms Intake Note: Ms. Hernandez is here today c/o worsening symptoms of pain. Agriculture Manager Required: No Allergies morphine Allergy (Verified 04/04/24 15:00) itchy Assessment & Plan Assessment & Plan (1) Cervical radiculopathy: Code(s): M54.12 - Radiculopathy, cervical region Category: Medical Plan: Dear colleague, On 04/04/2024, I saw for return visit [place]. I originally saw for left-sided neck pain, possibly caused by a C4 radiculopathy associated with severe left C4 foraminal stenosis. I tried to arrange a C4 block but apparently there was a lot of miscommunication in the injection has not happened. I will refer to for the block. She mentioned that she is afraid of nerve damage but I assured her that this is very unlikely to happen. She also mentioned intermittent urinary incontinence, which is not related to her cervical spine. She has no signs of cervical spinal cord compression on exam. She will call my office for follow-up appointment after the injection is done. I spent 20 minutes to review imaging and to discuss plan of care. Do not hesitate to call with any questions or concerns. Carmelo Pruitt MD, PhD Spine Fellowship Trained Neurosurgeon Director, [facility] [place] [facility] Orders: Referrals Physiatry Referral M54.12 - Radiculopathy, cervical region Coding Level of Care Code Est Pt Level 3 (57797) Diagnoses Cervical radiculopathy M54.12
== END 2024-04-04 16:28 | disposition home or self-care (01) ==
PROVIDERS: PCP Internal Medicine; Visit Provider Neurological Surgery
DX: M54.12 Radiculopathy, cervical region (principal)
CPT/HCPCS: 99213

== ENCOUNTER → 2024-04-04 14:51 | Outpatient (BNVA) | payer OTHER, SELFPAY | PROVIDERS: PCP Internal Medicine; Visit Provider Neurological Surgery | DX: M54.12 Radiculopathy, cervical region (principal) | CPT/HCPCS: 99212 ==

== ENCOUNTER 2024-06-27 11:23 | Outpatient (AMB) | payer OTHER, SELFPAY ==
--- OUTSIDE RECORDS SUMMARY | 2024-06-27 11:26 | XMS_ITS | Data Portability ---
Author Organization [employer] [place] Address [address] [place] [phone] Care Team Providers Care Material Assembler Name Role Phone [facility] Referring Provider Assessment Encounter Date Assessment Date Assessment LastModified by Organization Details LastModified Time 12/22/2022 12/22/2022 As noted, we were called to see this patient regarding concerns of puncture wound to foot. Evaluation in the field was performed by my instructor of sociology colleague, as noted above, I provided real-time direction and supervision for this visit. The evaluation revealed that the patient had stepped on a shelia fence yesterday and punctured her foot on the plantar surface. There is an evident puncture wound and it is tender, erythematous, swollen. no systemic signs of infection. Impression: infected puncture wound of foot Plan: needs tetanus shot and likely IV, possibly broad spectrum abx for infected foot wound. Suggest ER. Given 750mg ciprofloxacin x1 now on site for earlier abx. Disposition: We discussed the situation and I recommended referral to the emergency department. [email or web address] Not available 12/22/2022 15:17:17 Plan of Treatment Reminders Order Date Submit Date Provider Last Modified By Organization Details Last Modified Time Details Appointments None recorded. Lab None recorded. Referral None recorded. Procedures None recorded. Surgeries None recorded. Imaging None recorded. Medication Orders ciprofloxac in 250 mg tablet 2022 023 [email or web address] Not available 15:17:14 Patient TargetsNo targets recorded. Patient InstructionsNo instructions recorded. Reason for Referral None Reported. Medical Equipment None Reported. Medications Name Sig Start Date Stop Date Status Note LastModified by Organization Details LastModified Time sulfasalazin e 500 mg tablet TAKE 1 TABLET BY MOUTH TWICE DAILY X 1 WEEK, THEN TAKE 2 TABLETS EVERY MORNING & 1 TABLET AT NIGHT X 1 WEEK, THEN TAKE 2 TABLETS TWICE DAILY active Not Available Not Available Not Available simethicone 180 mg capsule TAKE 1 CAPSULE BY MOUTH TWICE DAILY NEEDED active Not Available Not Available No t Available sumatriptan 100 mg tablet TAKE 1 TABLET BY MOUTH AT THE ONSET OF MIGRAINE EVERY 4 HOURS NEEDED UP TO TWICE A DAY active Not Available Not Available No t Available meloxicam 15 mg tablet TAKE ONE TABLET BY MOUTH EVERY DAY active Not Available Not Available No t Available dextroamphet amine-amphet amine 10 mg tablet TAKE TWO TABLETS BY MOUTH THREE TIMES A DAY active Not Available Not Available Not Available triamcinolon e acetonide 0.1 % topical cream APPLY TOPICALLY TO AFFECTED AREA THREE TIMES DAILY active Not Available Not Available Not Available meloxicam 7.5 mg tablet TAKE 1 TABLET BY MOUTH DAILY FOR 10 DAYS active Not Available Not Available Not Available dextroamphet amine-amphet amine 20 mg tablet TAKE ONE TABLET BY MOUTH EVERY MORNING AND ONE TABLET AT 1PM. active Not Available Not Available No t Available methylpredni solone 4 mg tablets in a dose pack FOLLOW PACKAGE INSTRUCTION S active Not Available Not Available No t Available ondansetron 4 mg disintegrati ng tablet DISSOLVE ONE TABLET BY MOUTH EVERY 6 TO 8 HOURS NEEDED FOR NAUSEA AND VOMITING active Not Available Not Available No t Available oxycodone 5 mg tablet TAKE ONE TABLET BY MOUTH EVERY 6 HOURS NEEDED FOR PAIN active Not Available Not Available No t Available Lubricant Eye Drops 0.5 % INSTILL ONE DROP IN EACH EYE TWO TIMES A DAY active Not Available Not Available No t Available peg 3350-electro lytes 236 gram-22.74 gram-6.74 gram-5.86 gram solution MIX AND DISSOLVE WITH 8 OUNCES OF WATER DIRECTED active Not Available Not Available No t Available diclofenac 1 % topical gel APPLY 2 GRAMS TO SINGLE ELBOW, WRIST OR HAND INCLUDES PALM/FINGER S/BACK OF HAND) FOUR TIMES A DAY DIRECTED active Not Available Not Available Not Available Lo Loestrin Fe 1 mg-10 mcg (24)/10 mcg (2) tablet TAKE 1 TABLET BY MOUTH DAILY active Not Available Not Available Not Available Vitals Date Recorded Oxygen saturation Oxygen saturation in Arterial blood by Pulse oximetry Heart rate Body temperature Body weight Respiratory rate Body height Systolic blood pressure Diastolic blood pressure Provider Name and Address Organization Details Last Updated DateTime 3 99 % 99 % 80 /min 98.4 [degF] 04884 g 14 /min 167.64 cm 124 mm[Hg] 80 mm[Hg] Not Available [facility] - production 3 15:05:43 Social History None recorded. Functional Status None recorded. Mental Status None recorded. Family History Nothing Reported. Medical History No medical history recorded. Gynecological HistoryNo gynecological history recorded. Obstetrics History GPAL:G 0 P 0 0 0 0 Past Encounters Encounter ID Performer Location Encounter Start Date Encounter Closed Date Diagnosis/Indication Diagnosis SNOMED-CT Code Diagnosis ICD10 Code [id number] BETTINA AGRAWAL MD [facility] - [facility] [address] [place] [address] 12/22/2022 15:05:36 12/23/2022 22:52:00 Puncture wound of foot [id number] S91.331A Health Concerns Section Related Observation LastModified by Organization Detai ls LastModified Time None Recorded Concern Status LastModified by Organization Details LastModified Time None Recorded Advance Directives Directive None Recorded Payers Encounter Date Sequence Insurance Name Policy Number Policy Hannah Covered Member ID Hannah Member ID Guarantor Name 12/22/2022 1 [facility] - DOS ON OR AFTER 2022 - DUAL ELIGIBLE - ALF OPTIONS AND ONE CARE (MEDICARE REPLACEMENT/ADV ANTAGE - HMO) Avelina Hernandez [id number] Avelina Hernandez Notes Date Note Type Note Provider Name and Address Organization Details Recorded Time 12/22/2022 text/html [facility] Nursing Assessment: Chief Complaints: Injury, Pain PMH: Other Allergies: Unknown Comments: Member stepped onto shelia fence wire last evening. Small puncture wound to bottom of heel that is swollen and tender. Member performing wound care and applying neosporin to area. Unkown last tetanus. Unable to reach PCP. .................. .................. .................. .................. .................. .................. .................. ............... Screed Person Note From Mert Markham: Pt caox3 answers door with a limp, favoring left side. P complains of right foot pain since last night when she stepped on shelia wire that punctured her tight heel. Pt doesn't know when she had a tetanus shot last. Pt denies other complaints. Pt pink warm and dry, right foot has a small puncture wound, no bleeding on heel of right foot. Swelling and hot to touch near right heel. advises pt to go to ED for tetanus shot and possible IV antibiotics. [facility] orders cipro administered as noted. Pt states she will drive herself to [facility]. Red flags and pt education discussed. .................. .................. .................. .................. .................. .................. .................. ............... Disposition: Fulfilled BETTINA AGRAWAL MD [address] [facility],[address], [place], [phone], [employer] 12/22/2022 15:52:04 OBGyn Episode No OBEpisode recorded.
--- NOTE | 2024-06-27 11:55 | HO.SPINEOV ---
Intake Visit Reasons: f/up after injection Intake Note: Ms. Hernandez is here today to F/u after her injections Supervisory Lifeguard Required: No Allergies fentanyl Allergy (Severe, Verified 06/27/24 12:04) Rash morphine Allergy (Severe, Verified 06/27/24 12:04) Rash Coding
--- NOTE | 2024-06-27 13:10 | HO.SPINEOV ---
Intake Visit Reasons: f/up after injection Allergies fentanyl Allergy (Severe, Verified 06/27/24 12:04) Rash morphine Allergy (Severe, Verified 06/27/24 12:04) Rash Assessment & Plan Assessment & Plan (1) Neuroforaminal stenosis of cervical spine: Code(s): M48.02 - Spinal stenosis, cervical region Category: Medical Plan Dear colleague, On 06/27/2024, I saw follow-up Avelina Hernandez to discuss the result of the left C4 nerve block. She had the block done last Sunday and had temporary relief of the neck pain and the zinging down her arm was diminished as well. She states that the symptoms continued to significantly bother her. She points towards the left side of the neck and the upper left arm. We discussed a left C4 foraminotomy again. I told her that the symptoms are pointing towards that area therefore I am willing to perform a left C4 foraminotomy. She is scheduled for 08/14/2024. She wanted me to document that she has an allergy to morphine and fentanyl which not only gives her itching but also does not provide relief. I spent 25 minutes in his consult to discuss the findings of the injection and the plan of care. Carmelo Pruitt MD, PhD Spine Fellowship Trained Neurosurgeon Director, [facility] [place] [facility] Coding Level of Care Code Est Pt Level 3 (17347) Diagnoses Neuroforaminal stenosis of cervical spine M48.02
== END 2024-06-27 12:33 | disposition home or self-care (01) ==
PROVIDERS: PCP Internal Medicine; Visit Provider Neurological Surgery
DX: M48.02 Spinal stenosis, cervical region (principal)
CPT/HCPCS: 99213

== ENCOUNTER → 2024-06-27 11:23 | Outpatient (BNVA) | payer OTHER, SELFPAY | PROVIDERS: PCP Internal Medicine; Visit Provider Neurological Surgery | DX: M48.02 Spinal stenosis, cervical region (principal) | CPT/HCPCS: 99212 ==

== ENCOUNTER 2024-08-14 10:37 | Day surgery (SDC) | payer OTHER, SELFPAY ==
--- OUTSIDE RECORDS SUMMARY | 2024-07-16 11:38 | XMS_ITS | Data Portability ---
Author Organization [employer], [place] Address [address] [place] [phone] Care Team Providers Care In Shop Service Technician Name Role Phone [facility] Referring Provider Assessment Encounter Date Assessment Date Assessment LastModified by Organization Details LastModified Time 12/22/2022 12/22/2022 As noted, we were called to see this patient regarding concerns of puncture wound to foot. Evaluation in the field was performed by my acid splicer colleague, as noted above, I provided real-time [...] % 99 % 80 /min 98.4 [degF] 35361 g 14 /min 167.64 cm 124 mm[Hg] [...] Diagnosis/Indication Diagnosis SNOMED-CT Code Diagnosis ICD10 Code Diagnosis Note [id number] BETTINA AGRAWAL MD [facility] - [facility] [address] [place] [address] 12/22/2022 15:05:36 12/23/2022 22:52:00 Puncture wound of foot [id number] S91.331A Health Concerns Section Related Observation LastModified by Organization Detai ls LastModified Time None Recorded Concern Status LastModified by Organization Details LastModified Time None Recorded Advance Directives Directive None Recorded Payers Encounter Date Sequence Insurance Name Policy Number Policy Hannah Covered Member ID Hannah Member ID Guarantor Name 12/22/2022 1 [facility] - DOS ON OR AFTER 2022 - DUAL ELIGIBLE - SENIOR LIVING OPTIONS AND ONE CARE (MEDICARE REPLACEMENT/ADV ANTAGE - HMO) Avelina Hernandez [id number] Avelina Hernandez Notes Date Note Type Note [...] .................. .................. .................. .................. .................. .................. ............... Charcoal Kiln Burner Note From Mert Markham: Pt caox3 answers [...] for tetanus shot and possible IV antibiotics. [facility] orders cipro administered as noted. Pt states she will drive herself to [facility]. Red flags and pt education discussed. .................. .................. .................. .................. .................. .................. .................. ............... Disposition: Hui AGRAWAL MD [address] [facility],[address], [place], [phone], [employer] 12/22/2022 15:52:04 OBGyn Episode No OBEpisode recorded.
--- NOTE | 2024-07-30 10:29 | P.CONAN_ITS ---
Documented by User: Randa Batista NP 08/13/24 09:17 HPI - Anesthesia Eval Consult details Narrative: 54yo F for Left C4 Foraminotomy, 08/14/24 ALLERGY: FENTANYL and MORPHINE (Rash) Pt states no issue with Dilaudid No recent illness No CP/SOB with regular activity Asthma: Pt denies, no inhalers Psoriatic Arthritis: no prednisone for months, no other rx PMFSH Active Problems Active Problems: All Active Problems Neuroforaminal stenosis of cervical spine (Acute) Cervical radiculopathy (Acute) Urinary urgency (Acute) Encounter for monitoring sulfasalazine therapy (Acute) Cervicalgia (Acute) Dry skin (Acute) Fibromyalgia, primary (Acute) Mammogram declined (Acute) Low back pain, unspecified (Acute) Psoriatic arthritis (Acute) Lymphadenopathy of head and neck (Acute) Weakness (Acute) Encounter for vitamin deficiency screening (Acute) Fatigue (Acute) Left Achilles tendinitis (Acute) Arthritis (Acute) Cough (Acute) Paronychia of finger (Acute) Environmental allergies (Acute) Folliculitis (Acute) Sprain and strain of ankle (Acute) Sciatica (Acute) Muscle spasm (Acute) Somatic dysfunction of right sacroiliac joint (Acute) Asthma (Acute) Vitamin B1 deficiency (Acute) Rash (Acute) Eczema (Acute) Left ankle swelling (Acute) Vitamin B12 deficiency (Acute) Vitamin D deficiency (Acute) Hypoglycemia (Acute) Annual physical exam (Acute) Anxiety (Acute) Normal Pap smear (Acute) Past Medical History Medical History Osteoarthritis Back pain Post concussive syndrome Numbness Cervical radiculopathy Rash Left ankle swelling Vitamin B12 deficiency Asthma Vitamin D deficiency Hypoglycemia Annual physical exam Normal Pap smear Irritable bowel syndrome with constipation PTSD (post-traumatic stress disorder) Degenerative disc disease, lumbar Depression Anxiety Migraine Attention deficit hyperactivity disorder Family History Family History Father No problems noted. Mother No problems noted. Family history of problems with anesthesia: No Surgical History Surgical History H/O tubal ligation History of esophagogastroduodenoscopy (EGD) History of back surgery Hx of section H/O colonoscopy History of tonsillectomy History of Problems with Anesthesia: No Social History Social History Household Members Other:: lives with children 17 and 21-year-old, on disability for PTSD Housing: Apartment Are you a primary respiratory care technician to a significant other at home: No Do you presently have visiting nurse or other home services: No Patient Tobacco Use Status: Never used Tobacco e-Cigarette/Vaping Use: Never Used Use of substances other than those prescribed or required for medical reasons: No Have you been hit, kicked, punched, or otherwise hurt by someone within the past year? If so, by whom?: No Are you DNR?: No Advance Directives: No Advance Directives Information Provided: Yes Advance Directives on File: No Recently lost weight without trying: No Eating poorly because of decreased appetite: No Nutrition Risks: No Nutritional Risk Patient : No : No Poor oral hygiene: Yes (missing teeth on upper and upper and lower crowns) Current occupational status: disabled Cognitive needs: No Hearing needs: No Vision needs: Yes Meds Allergies Allergy/AdvReac Type Severity Reaction Status Date / Time fentanyl Allergy Severe Rash Verified 08/14/24 11:12 morphine Allergy Severe Rash Verified 08/14/24 11:12 Home Medications ?Medication ?Instructions ?Recorded ?Confirmed ?Last Taken ?Type dextroamphetamine-amphetamine 20 1 tab PO BID 05/04/23 08/14/24 Unknown History mg tablet Exam Pertinent Lab Results Pertinent Lab Results: Laboratory Tests 03/21/24 21:22 WBC 10.7 Hgb 13.4 Hct 39.3 Plt Count 167 Sodium 141 Potassium 3.7 Chloride 107 Carbon Dioxide 27 BUN 11 Creatinine 0.76 Airway Mallampati Class: I TM Dist: >3cm Neck ROM: Limited Loose/Missing/Broken Teeth: No (Crowns throughout) Heart: RRR Lungs: CTAB Assessment and Plan Assessment Anesthesia Assessment: Anesthesia Plan Discussed and PAT Visit Final Anesthetic Review Family History of Problems with Anesthesia: No History of Problems with Anesthesia: No Documented by User: Karo Gastelum MD 08/14/24 13:43 [facility] Past Medical History Medical History Osteoarthritis Back pain Post concussive syndrome Numbness Cervical radiculopathy Rash Left ankle swelling Vitamin B12 deficiency Asthma Vitamin D deficiency Hypoglycemia Annual physical exam Normal Pap smear Irritable bowel syndrome with constipation PTSD (post-traumatic stress disorder) Degenerative disc disease, lumbar Depression Anxiety Migraine Attention deficit hyperactivity disorder Family History Family History Father No problems noted. Mother No problems noted. Family history of problems with anesthesia: No Surgical History Surgical History H/O tubal ligation History of esophagogastroduodenoscopy (EGD) History of back surgery Hx of section H/O colonoscopy History of tonsillectomy History of Problems with Anesthesia: No Social History Social History Household Members Other:: lives with children 17 and 21-year-old, on disability for PTSD Housing: Apartment Are you a primary respiratory care technician to a significant other at home: No Do you presently have visiting nurse or other home services: No Patient Tobacco Use Status: Never used Tobacco e-Cigarette/Vaping Use: Never Used Use of substances other than those prescribed or required for medical reasons: No Have you been hit, kicked, punched, or otherwise hurt by someone within the past year? If so, by whom?: No Are you DNR?: No Advance Directives: No Advance Directives Information Provided: Yes Advance Directives on File: No Recently lost weight without trying: No Eating poorly because of decreased appetite: No Nutrition Risks: No Nutritional Risk Patient : No : No Poor oral hygiene: Yes (missing teeth on upper and upper and lower crowns) Current occupational status: disabled Cognitive needs: No Hearing needs: No Vision needs: Yes Meds Allergies Allergy/AdvReac Type Severity Reaction Status Date / Time fentanyl Allergy Severe Rash Verified 08/14/24 11:12 morphine Allergy Severe Rash Verified 08/14/24 11:12 Home Medications ?Medication ?Instructions ?Recorded ?Confirmed ?Last Taken ?Type dextroamphetamine-amphetamine 20 1 tab PO BID 05/04/23 08/14/24 Unknown History mg tablet Exam Height,Weight and Vital Signs: Height 5 ft 4 in Weight 64.6 kg Vital Signs Temp Pulse Resp BP Pulse Ox O2 Del Method 08/14/24 11:18 98.4 F 74 16 132/81 99 Room Air Pertinent Lab Results Pertinent Lab Results: Laboratory Tests 03/21/24 21:22 WBC 10.7 Hgb 13.4 Hct 39.3 Plt Count 167 Sodium 141 Potassium 3.7 Chloride 107 Carbon Dioxide 27 BUN 11 Creatinine 0.76 Airway Mallampati Class: I TM Dist: >3cm Neck ROM: Limited Loose/Missing/Broken Teeth: Yes (Several crowns top front. Patient unsure how secure they are. Several missing teeth) Assessment and Plan Assessment Anesthesia Assessment: Anesthesia Plan Discussed, PAT Visit and Chart Reviewed Final Anesthetic Review Family History of Problems with Anesthesia: No History of Problems with Anesthesia: No NPO: Yes ASA Class: II Final Preanesthetic Review: No Changes in Pt Med Stat, Meds/Allgs Chart Reviewed, Consent Obtained/Reviewed and Anes Risks/Benef Reviewed Patient Risk: Intermediate Procedure Risk: Low Assessment/Block/Sedation in SS: Assess/Block/Sedation-SS Anesthetic Plan Anesthetic Plan: GA Disposition: Standard PACU
[2024-07-30 10:34] VITALS: BP 142/98; PULSE 78; RESP 20; O2SAT 98; BMI 24.7
[2024-08-14] VITALS (8 sets, daily range): BP systolic 112–134; BP diastolic 65–93; PULSE 73–88; RESP 16–21; TEMP 36.3–36.9; O2SAT 97–100; BMI 24.4
--- NOTE | ~2024-08-14 | FL_ITS ---
EXAMINATION: FL GUIDANCE ONLY HISTORY: c4 foraminotomy left COMPARISON: None available. TECHNIQUE: Fluoroscopy time: 1.4 seconds. Cumulative Dose: 0.0874 mGy. DAP: 0.0380 mGym2 Images: 1. FINDINGS: A single fluoroscopic spot film of the cervical spine in the lateral projection demonstrates a probe at the C3-4 level from a posterior approach. FL/FL guidance in OR IMPRESSION: Fluoroscopy during procedure. Please see procedure report for additional information. Electronically signed by: Cesar Shields MD 08/14/2024 02:34 PM KYLIE
--- NOTE | 2024-08-14 10:26 | P.HPSUR_ITS ---
Pre-Procedural Eval Section A - 24 Hr Update-Section A only Date of Service: 08/14/24 The patient is an INPATIENT: No Section B - Complete if H&P > 30 days Chief Complaint: Spinal stenosis, cervical region Details of Present Illness: left neck pain Allergies: Allergies Allergy/AdvReac Type Severity Reaction Status Date / Time fentanyl Allergy Severe Rash Verified 06/27/24 12:04 morphine Allergy Severe Rash Verified 06/27/24 12:04 Review of Systems Sugical H&P ROS: Negative: Constitution, Cardiovascular, Respiratory, Neurologi kvng, Psychiatric, Hem-Onc, Allergic/Immunologic, Gastrointestinal, Genitourinary, Musculoskeletal, Integumentary, Endocrine and Eyes/Ears/Nose/Throat Exam Surgical H&P Exam: Normal: HEENT, Normal: Heart, Normal: Lungs, Normal: Extremities, Normal: Abdomen, Normal: Skin and Normal: Neurological (Awake, alert) Plan I have reviewed the history and physical and performed a pertinent physical examination on my patient. No changes have occurred unless specified. left C4 foraminotomy Time Spent With Patient Time: Total time managing care of this patient today ____ minutes.
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
--- OUTSIDE RECORDS SUMMARY | 2024-08-14 10:40 | XMS_ITS | Data Portability ---
Author Organization [employer] Address [address] [place] [phone] Care Team Providers Care Technical Adjuster Name Role Phone [facility] Referring Provider Assessment Encounter Date Assessment Date Assessment LastModified by Organization Details LastModified Time 12/22/2022 12/22/2022 As noted, we were called to see this patient regarding concerns of puncture wound to foot. Evaluation in the field was performed by my freight inspector colleague, as noted above, I provided real-time [...] % 99 % 80 /min 98.4 [degF] 17156 g 14 /min 167.64 cm 124 mm[Hg] [...] SNOMED-CT Code Diagnosis ICD10 Code Diagnosis Note [id number] BETTINA AGRAWAL MD Main - [address]ED [address] [place] [address] 12/22/2022 15:05:36 12/23/2022 22:52:00 Puncture wound of foot [id number] S91.331A Health Concerns Section Related Observation LastModified by Organization Detai ls LastModified Time None Recorded Concern Status LastModified by Organization Details LastModified Time None Recorded Advance Directives Directive None Recorded Payers Encounter Date Sequence Insurance Name Policy Number Policy Hannah Covered Member ID Hannah Member ID Guarantor Name 12/22/2022 1 [facility] - DOS ON OR AFTER 2022 - DUAL ELIGIBLE - SNF OPTIONS AND ONE CARE (MEDICARE REPLACEMENT/ADV ANTAGE - HMO) Avelina Hernandez [id number] Avelina Hernandez Notes Date Note Type Note [...] .................. .................. .................. .................. .................. .................. ............... Meeting Manager Note From Mert Markham: Pt caox3 answers [...] for tetanus shot and possible IV antibiotics. [facility] orders cipro administered as noted. Pt states she will drive herself to [facility]. Red flags and pt education discussed. .................. .................. .................. .................. .................. .................. .................. ............... Disposition: Hui AGRAWAL MD [address] [facility],[address], [place], [address], [employer] 12/22/2022 15:52:04 OBGyn Episode No OBEpisode recorded.
--- OUTSIDE RECORDS SUMMARY | 2024-08-14 10:40 | XMS_ITS | Clinical Summary ---
Author Organization [facility] Address [address] [place] [address] Care Team Providers Care Coat Ironer Hand Name Role Phone Elijah Pan DO Primary Care Provider [phone] Social History Tobacco Use Types Packs/Day Years Used Date Smoking Tobacco: Never Assessed Sex and Gender Information Value Date Recorded Sex Assigned at Not on file Gender Identity Not on file Sexual Orientation Not on file Job Start Date Occupation Industry Not on file Not on file Not on file Plan of Treatment Health Maintenance Due Date Last Done Comments Hepatitis B Vaccines (1 of 3 - 3-dose series) 1972 Hepatitis C Screening 1972 COVID-19 Vaccine (#1) 01/24/1973 Depression Screening 1984 Preventative Health Evaluation 1990 DTap / Tdap / Td (1 - Tdap) 1991 Cervical Cancer Screening (P ap Smear) 1993 Colon Cancer Screening (Colonoscopy) 2017 Breast Cancer Screening (Mammogram) 2022 Shingrix-Zoster Vaccine (1 of 2) 2022 Influenza Vaccine (#1) 2024 Pneumococcal Vaccine Aged Out No long er eligible based on patient's age to complete this topic RSV Ped < 20 months Aged Out No longe r eligible based on patient's age to complete this topic Care Teams Coat Ironer Hand Relationship Specialty Start Date End Date Elijah Pan DO [address] [place] [id number] PCP - General Internal Medicine 01/29/19
[2024-08-14] MEDS: Gabapentin 300 MG CAPSULE PO (11:37)
[2024-08-14] MEDS: methocarbamoL 750 MG TABLET PO (11:37)
[2024-08-14] MEDS: Lactated Ringers 1,000 ML 100 ML IVCONT (11:47)
[2024-08-14] MEDS: ceFAZolin Sodium/Dextrose,Iso 2 GM/50 ML PIGGYBACK IV (12:46)
[2024-08-14] MEDS: Acetaminophen 1,000 MG/100 ML PIGGYBACK 400 MG IV (12:50)
--- NOTE | 2024-08-14 13:51 | PM.DS ---
DS: Providers Provider Date of Service: 08/14/24 Date of discharge: 08/14/24 Primary care physician: Unknown Physician DS: Summary Time Attestation Discharge Coordination Time (in mins): 15 Quality: Safe Use of Opioids Does Pt have an Active Cancer Diagnosis on the Problem List?: No Quality: Stroke Does the patient have a stroke diagnosis?: No Physical Exam Vital Signs: Vital Signs: Last Vital Signs Temp 98.4 F 08/14/24 11:18 Pulse 74 08/14/24 11:18 Resp 16 08/14/24 11:18 BP 132/81 08/14/24 11:18 Pulse Ox 99 08/14/24 11:18 O2 Del Method Room Air 08/14/24 11:18 BMI result Body Mass Index 24.4 Discharge Plan Discharge Patient Disposition: Home, Self-Care Referrals: Physician,Unknown J [Primary Care Provider] - 1 Week Discharge Medications: New oxycodone 5 mg tablet 5 mg PO Q6H PRN (Reason: pain (scale score 7-10)) Qty: 30 0RF Rx Instructions: Partial Fill upon patient request. sulfamethoxazole-trimethoprim [Bactrim DS] 800-160 mg tablet 1 tab PO BID 3 Days Qty: 6 0RF Continued ondansetron 4 mg tablet,disintegrating 4 mg PO Q6-8H PRN (Reason: nausea and vomiting) Qty: 7 0RF dextroamphetamine-amphetamine 20 mg tablet 1 tab PO BID Discharge Orders: Discharge Order (Routine); Ordered 08/14/24 Ordered By: Navneet Silva Diet: Advance to usual diet Activity on Discharge: As tolerated Activity Restrictions/Additional Instructions: After your spinal surgery we ask you to observe the following restrictions/guidelines: Activity: It is normal to feel some discomfort as you increase your activity, but that will improve with time. We ask you avoid heavy lifting or acitivities that cause pain. As a general rule, 8lbs is a safe limit for lifting right after surgery. Walk as much as you feel comfortable but not to exhaustion. You will feel extra tired the first few days after surgery. Stay well hydrated. It is OK to walk up and down stairs You may return to driving when you are off narcotics (such as vicodin, oxycodone, dilaudid, etc), and you are back to normal functional capacity. If you have any concerns please check with office before driving. Return to work is specific to each patient and each surgery, so please speak with your doctor/PA at first follow up. Please bring paperwork such as FMLA at that time if you need it filled out. Medications: We will be sending in a few doses of Bactrim (Trimethoprim / Sulfamethoxazole antibiotic) to your pharmacy. Please take the entire prescription. \ We recommend you take 1,000mg Tylenol every 8 hours for the first few weeks after surgery, if you do not have any liver issues and can tolerate this medication. Do not exceed 4,000mg daily. We will give you a short supply of narcotics after surgery (usually one weeks worth). If you need more please call the office but do not use more than prescribed. You will need to give our office 48 hours notice if you need narcotics refilled and we do not fill narcotics on weekends or evenings. If you are on a narcotic, it is a good idea to take a stool softener such as colace or senna to avoid constipation If you take blood thinner such as aspirin, Plavix, Coumadin, Effient, Eliquis etc for conditions such as Afib, DVT, Pulmonary embolus, coronary disease, stents etc please speak with your surgeon about specific details as to when you can resume these medications. You can resume NSAIDs on post op day 1 (eg: Motrin, Naproxen, etc). Follow up: Please call the office, , after surgery to arrange a 3 week follow up for wound check. Wound Care: You may remove your dressing on the first day after surgery. ?You may ?leave open to air. Please do not remove the steri strips underneath. they will fall off on their own in one week. IT IS NORMAL FOR THE WOUND TO OOZE OR BE BLOODY FOR A FEW DAYS AFTER SURGERY. ?IF THIS HAPPENS JUST PLACE NEW DRESSING OVER IT TO AVOID STAINING CLOTHES. You may shower on post op day # 1 We ask that you do not let the water soak the wound. If it does get wet, just towel dry lightly. Please do not scrub your incision or place any type of chemical/ointment on the wound. No tub baths, pools or jacuzzis for one month. If you have any leaking or redness from your wound, or fevers, please call the office. Print Language: Indonesian
[2024-08-14] MEDS: HYDROmorphone HCl 0.5 MG/0.5 ML SYRINGE 0.25 MG IVPUSH ×4 (14:08→14:23)
[2024-08-14] MEDS: oxyCODONE HCl Immed Release 5 MG TABLET PO (14:36)
--- NOTE | 2024-08-14 14:38 | P.OP_ITS ---
Operative Note Operative Note Date of Service: 08/14/24 Narrative: Preoperative Diagnosis: Left cervical radiculopathy Operation: Left C4 laminotomy and foraminotomy with microscope Consent Informed Consent was obtained for this operation. I have explained the nature, purpose and benefits of the operation. I have discussed the risks and benefit of the operation including possible complications or adverse events with patient/family. Alternative(s) were discussed with the patient with their relative benefits and risks as well as the consequences of not accepting the operation were included in obtaining consent. Surgeon: ENRIQUE MUJICA MD, PHD Procedure Assisted By: NIKUNJ Mckeon Description of Procedure The patient is suffering from left-sided neck pain radiating to the top of the left arm. Her MRI shows a left C4 foraminal stenosis. She failed conservative management and she was offered a C4 foraminotomy. The procedure complications were explained. The patient was consented. The patient was brought to the operating room and endotracheally intubated. The patient was turned in prone position on the gel rolls. Prep and drape was done followed by timeout. a midcervical incision was made. Dissection was carried down the midline to avoid blood loss. The paravertebral muscles were released to expose the C3-C4 lamina in preparation for the foraminotomy. The microscope was brought in.We observed instability of the left C3 for facet joint before starting the decompre A small left C3-C4 laminotomy was done. The origin of the C4 nerve was identified. The inferior articular process of C3 laminar was drilled down after which with a 1. Kerrison a foraminotomy was done to decompress the nerve root. A nerve hook could be easily passed over the nerve root a sign of adequate decompression. ssion. The physician printing bindery assistant performed hemostasis and closed incision. tanesha were used to approximate the incision. An op-site with tegaderm was used to cover the incision. All sponge needle counts were correct. Patient was extubated and transported in stable is to recovery room. Anesthesia: General Estimated Blood Loss (ml): Minimal Duration of Surgery: Under 60 Minutes Postoperative Plan: Discharge to home
== END 2024-08-14 15:30 | disposition home or self-care (01) ==
PROVIDERS: Visit Provider Neurological Surgery
PROC: (CPT 63045; principal; 2024-08-14 13:00)
DX: M48.02 Spinal stenosis, cervical region (principal); M99.61 Osseous and subluxation stenosis of intervertebral foramina of cervical region; M54.12 Radiculopathy, cervical region; Z88.5 Allergy status to narcotic agent
CPT/HCPCS: 63045; J0131; J0690; J1100; J1171; J2003; J2405; J2704; J3010

== ENCOUNTER → 2024-08-14 10:37 | Outpatient (BNV) | payer OTHER, SELFPAY | PROVIDERS: Visit Provider Physician Assistant | DX: M54.12 Radiculopathy, cervical region (principal) | CPT/HCPCS: 63045; 99499 ==

== ENCOUNTER 2024-08-28 09:11 | Outpatient (AMB) | payer OTHER, SELFPAY ==
--- NOTE | 2024-08-28 09:22 | A.SPINEOV_ITS ---
Intake Visit Reasons: staple removal Intake Note: Ms. Hernandez is here today to have her staple removal. Hoeing Row Boss Required: No Allergies fentanyl Allergy (Severe, Verified 08/28/24 09:22) Rash morphine Allergy (Severe, Verified 08/28/24 09:22) Rash Assessment & Plan Assessment & Plan (1) H/O cervical spine surgery: Code(s): Z98.890 - Other specified postprocedural states Category: Surgical Plan Procedure: Left C4 laminotomy Avelina comes in today for staple removal s/p left C4 laminotomy 14 days ago. She initially was evaluated in clinic for left-sided neck pain radiating to the left shoulder and left side of her face with intermittent numbness. Today, she reports that the bulk of her symptoms have resolved since surgery. She does report that she occasionally will get ?zingers? of pain throughout the day, but typically these are attributed to increased upper extremity activity. We discussed the postoperative healing course, and I answered all the questions that she had during this visit. No new neurological deficits. The patient ambulates well and rises from a seated position without difficulty. She has full range of motion of her upper extremities. Her posterior incision site appeared well healing with some edema, but no erythema fluctuance or drainage. The incision has healed quite nicely. I removed ten tanesha which were overlying the incision site during this visit. The area was cleansed with both Betadine and alcohol before and after removing her tanesha. Avelina is doing very well after her left-sided C4 laminotomy. I would like to follow up with her in 6 weeks to ensure her symptoms continue to improve. Navneet Pruitt MD,PhD [facility] Coding Level of Care Code Global (55703) Diagnoses H/O cervical spine surgery Z98.890
--- OUTSIDE RECORDS SUMMARY | 2024-08-28 09:56 | XMS_ITS | Clinical Summary ---
Author Organization [facility] Address [address] [place] [phone] Care Team Providers Care Valver Name Role Phone Trinity Estrella MD Primary Care Provider [phone] Surgical History Surgery Date Site/Laterality Comments COLONOSCOPY 05/03/2007 PROCEDURE: SD COLONOSCOPY FLX DX W/COLLJ SPEC WHEN PFRMD; COMMENT: Neg/inc to 40 cm. SECTION PROCEDURE: SD DELIVERY ONLY; COMMENT: x2 TUBAL LIGATION PROCEDURE: [...] drink = 0.6 oz pur e alcohol) Comments Unknown Sex and Gender Information Value Date Recorded Sex Assigned at Not on file Legal Sex Female 6:26 PM EST Gender Identity Not on file Sexual Orientation [...] 06/10/2022 Social Influencers of Health Screening 06/10/2022 Pneumococcal Vaccine: 50+ Ye ars (1 of 1 - PCV) 2022 Zoster Vaccines (1 of 2) 2022 COVID-19 [...] patient's age to complete this topic Meningococcal B Vacine Aged Out No lo nger eligible based on patient's age to complete [...] age to complete this topic Care Teams Valver Relationship Specialty Start Date End Date Trinity Estrella MD PCP - General Internal Medicine 05/26/20
--- OUTSIDE RECORDS SUMMARY | 2024-08-28 09:56 | XMS_ITS | Data Portability ---
Author Organization [employer] Address [address] [place] [phone] Care Team Providers Care Lease Purchase Driver Name Role Phone [facility]IMARY [facility] Referring Provider Assessment Encounter Date Assessment Date Assessment LastModified by Organization Details LastModified Time 12/22/2022 12/22/2022 As noted, we were called to see this patient regarding concerns of puncture wound to foot. Evaluation in the field was performed by my clinical lab specialist colleague, as noted above, I provided real-time [...] % 99 % 80 /min 98.4 [degF] 53787 g 14 /min 167.64 cm 124 mm[Hg] [...] SNOMED-CT Code Diagnosis ICD10 Code Diagnosis Note [id number] BETTINA AGRAWAL MD Main - [facility] [address] [place] [address] 12/22/2022 15:05:36 12/23/2022 22:52:00 Puncture wound of foot [id number] S91.331A Health Concerns Section Related Observation LastModified by Organization Detai ls LastModified Time None Recorded Concern Status LastModified by Organization Details LastModified Time None Recorded Advance Directives Directive None Recorded Payers Encounter Date Sequence Insurance Name Policy Number Policy Hannah Covered Member ID Hannah Member ID Guarantor Name 12/22/2022 1 [facility] - DOS ON OR AFTER 2022 - DUAL ELIGIBLE - JAIL OPTIONS AND ONE CARE (MEDICARE REPLACEMENT/ADV ANTAGE - HMO) Avelina Hernandez [id number] Avelina Hernandez Notes Date Note Type Note [...] .................. .................. .................. .................. .................. .................. ............... Sat Act Instructor Note From Mert Markham: Pt caox3 answers [...] for tetanus shot and possible IV antibiotics. [facility] orders cipro administered as noted. Pt states she will drive herself to [facility]. Red flags and pt education discussed. .................. .................. .................. .................. .................. .................. .................. ............... Disposition: Hui AGRAWAL MD [address] [facility],[address], [place], [address], [employer] 12/22/2022 15:52:04 OBGyn Episode No OBEpisode recorded.
--- OUTSIDE RECORDS SUMMARY | 2024-08-28 09:56 | XMS_ITS | Clinical Summary ---
Author Organization [facility] Address [address] [place] [address] Care Team Providers Care Carpenter Apprentice Name Role Phone Elijah Pan DO Primary Care Provider [phone] Social History Tobacco Use Types Packs/Day Years [...] age to complete this topic Care Teams Carpenter Apprentice Relationship Specialty Start Date End Date Elijah Pan DO [address] [place] [id number] PCP - General Internal Medicine 01/29/19
== END 2024-08-28 09:34 | disposition home or self-care (01) ==
PROVIDERS: Visit Provider Physician Assistant
DX: Z98.890 Other specified postprocedural states (principal)
CPT/HCPCS: 99024

== ENCOUNTER → 2024-08-28 09:11 | Outpatient (BNVA) | payer OTHER, SELFPAY | PROVIDERS: Visit Provider Physician Assistant | DX: Z48.02 Encounter for removal of sutures (principal); Z98.890 Other specified postprocedural states | CPT/HCPCS: 99212 ==

== ENCOUNTER 2024-09-05 14:29 | Outpatient (AMB) | payer OTHER, SELFPAY ==
--- NOTE | 2024-09-05 14:39 | A.SPINEOV_ITS ---
Intake Visit Reasons: muscle pain sx 08/14/24 Intake Note: Ms. Hernandez is here today c/o muscle pain her surg was on 08/14/2024 Gas Station Clerk Required: No Allergies fentanyl Allergy (Severe, Verified 09/05/24 14:39) Rash morphine Allergy (Severe, Verified 09/05/24 14:39) Rash Assessment & Plan Assessment & Plan (1) H/O cervical spine surgery: Code(s): Z98.890 - Other specified postprocedural states Category: Medical Plan MRs Hernandez came in today because she has still been having paraspinal pain around the incision site. She is worried that the stiffness is now getting worse in his starting to give her a little bit of the pain back down across the top of her shoulder. I examined her wound, it looked like it has healed up beautifully. No signs of infection or swelling in when I pushed on it she did not seem to be tender. I reassured her that a lot of things she is feeling are normal and that this should just go away with time. There is no signs of infection. She did want me to feel a small lump on the side of her neck which does feel like a lymph node but with no signs of infection, I am not sure how to put this in perspective. I told her if it does not go away she should follow up with her PCP. She is due to follow up with us again in about a month or so. Cody Pruitt MD, PhD [facility] Coding Level of Care Code Global (46407) Diagnoses H/O cervical spine surgery Z98.890
--- OUTSIDE RECORDS SUMMARY | 2024-09-05 16:39 | XMS_ITS | Data Portability ---
Author Organization [employer], [place] [employer] Address [address] [place] [address] Care Team Providers Care Fire Assistant Name Role Phone [facility] Referring Provider Assessment Encounter Date Assessment Date Assessment LastModified by Organization Details LastModified Time 12/22/2022 12/22/2022 As noted, we were called to see this patient regarding concerns of puncture wound to foot. Evaluation in the field was performed by my speed winder colleague, as noted above, I provided real-time [...] % 99 % 80 /min 98.4 [degF] 44677 g 14 /min 167.64 cm 124 mm[Hg] [...] SNOMED-CT Code Diagnosis ICD10 Code Diagnosis Note [id number] BETTINA AGRAWAL MD Main - instED [address] [place] [address] 12/22/2022 15:05:36 12/23/2022 22:52:00 Puncture wound of foot 41385698 S91.331A Health Concerns Section Related Observation LastModified by Organization Detai ls LastModified Time None Recorded Concern Status LastModified by Organization Details LastModified Time None Recorded Advance Directives Directive None Recorded Payers Encounter Date Sequence Insurance Name Policy Number Policy Hannah Covered Member ID Hannah Member ID Guarantor Name 12/22/2022 1 [facility] - DOS ON OR AFTER 2022 - DUAL ELIGIBLE - PRISON OPTIONS AND ONE CARE (MEDICARE REPLACEMENT/ADV ANTAGE - HMO) Avelina Hernandez [id number] Avelina Hernandez Notes Date Note Type Note [...] .................. .................. .................. .................. .................. .................. ............... Food And Beverage Coordinator Note From Mert Markham: Pt caox3 answers [...] for tetanus shot and possible IV antibiotics. [facility] orders cipro administered as noted. Pt states she will drive herself to [facility]. Red flags and pt education discussed. .................. .................. .................. .................. .................. .................. .................. ............... Disposition: Hui AGRAWAL MD [address] [facility],[address], [place], [address], [employer] 12/22/2022 15:52:04 OBGyn Episode No OBEpisode recorded.
--- OUTSIDE RECORDS SUMMARY | 2024-09-05 16:39 | XMS_ITS | Clinical Summary ---
Author Organization [facility] Address [address] [place] [address] Care Team Providers Care C D Reactor Operator Name Role Phone Elijah Pan DO Primary Care Provider [phone] Social History Tobacco Use Types Packs/Day Years [...] age to complete this topic Care Teams C D Reactor Operator Relationship Specialty Start Date End Date Elijah Pan DO [address] [place] [id number] PCP - General Internal Medicine 01/29/19
--- OUTSIDE RECORDS SUMMARY | 2024-09-05 16:40 | XMS_ITS | Clinical Summary ---
Author Organization [facility] Address [address] [place] [address] Care Team Providers Care Boat Captain Name Role Phone Trinity Estrella MD Primary Care Provider [phone] Surgical History Surgery Date Site/Laterality Comments COLONOSCOPY 05/03/2007 PROCEDURE: [place] COLONOSCOPY FLX DX W/COLLJ SPEC WHEN PFRMD; COMMENT: Neg/inc to 40 cm. SECTION PROCEDURE: [place] DELIVERY ONLY; COMMENT: x2 TUBAL LIGATION PROCEDURE: [...] age to complete this topic Care Teams Boat Captain Relationship Specialty Start Date End Date Trinity Estrella MD PCP - General Internal Medicine 05/26/20
== END 2024-09-05 14:51 | disposition home or self-care (01) ==
PROVIDERS: PCP Internal Medicine; Visit Provider Physician Assistant
DX: Z98.890 Other specified postprocedural states (principal)
CPT/HCPCS: 99024

== ENCOUNTER → 2024-09-05 14:29 | Outpatient (BNVA) | payer OTHER, SELFPAY | PROVIDERS: PCP Internal Medicine; Visit Provider Physician Assistant | DX: Z48.89 Encounter for other specified surgical aftercare (principal) | CPT/HCPCS: 99212 ==

== ENCOUNTER 2024-10-09 09:16 | Outpatient (AMB) | payer OTHER, SELFPAY ==
--- NOTE | 2024-10-09 09:23 | HO.SPINEOV ---
Intake Visit Reasons: 2nd post op Intake Note: Ms. Hernandez is here today for her 2nd post op. National Insurance Officer Required: No Allergies fentanyl Allergy (Severe, Verified 10/09/24 09:23) Rash morphine Allergy (Severe, Verified 10/09/24 09:23) Rash Assessment & Plan Assessment & Plan (1) H/O cervical spine surgery: Code(s): Z98.890 - Other specified postprocedural states Category: Surgical Plan: Avelina is a pleasant 54 year old female who underwent left C4 laminotomy and foraminotomy [address] Pruitt. She continues to report subjective improvement since the surgery. She feels the severe neck pain that she had last time she was evaluated by us has subsided. She still gets what she calls ?zingers? on the left side of her neck, and does still feel she has some decreased strength and range of motion in her bilateral upper extremities and shoulders. Other than this she has been doing very well since her surgery and reports no other concerns. No new neurological deficits. The patient ambulates well and rises from a seated position without difficulty. The posterior incision site is closed and well healed. I would like to send Avelina for a course of physical therapy to see if they can work out some of the persistent musculoskeletal concerns that the patient has. Importantly the goal of surgery was achieved, and the patient is no longer reporting a severe left-sided shooting radicular pain down her left arm. Navneet Pruitt MD,PhD [facility] Orders: Orders PT Evaluation and Treatment Today Z98.890 - Other specified postprocedural states Coding Level of Care Code Global (11425) Diagnoses H/O cervical spine surgery Z98.890
--- OUTSIDE RECORDS SUMMARY | 2024-10-09 09:42 | XMS_ITS | Data Portability ---
Author Organization [email or web address] [place] [employer] Address [address] [place] [phone] Care Team Providers Care Propulsion Motor And Generator Repairer Name Role Phone [facility] Referring Provider Assessment Encounter Date Assessment Date Assessment LastModified by Organization Details LastModified Time 12/22/2022 12/22/2022 As noted, we were called to see this patient regarding concerns of puncture wound to foot. Evaluation in the field was performed by my grading clerk colleague, as noted above, I provided real-time [...] % 99 % 80 /min 98.4 [degF] 72014 g 14 /min 167.64 cm 124 mm[Hg] [...] SNOMED-CT Code Diagnosis ICD10 Code Diagnosis Note [id number] BETTINA AGRAWAL MD Main - instED [address] [place] [id number] 12/22/2022 15:05:36 12/23/2022 22:52:00 Puncture wound of foot [id number] S91.331A Health Concerns Section Related Observation LastModified by Organization Detai ls LastModified Time None Recorded Concern Status LastModified by Organization Details LastModified Time None Recorded Advance Directives Directive None Recorded Payers Encounter Date Sequence Insurance Name Policy Number Policy Hannah Covered Member ID Hannah Member ID Guarantor Name 12/22/2022 1 [facility] - DOS ON OR AFTER 2022 - DUAL ELIGIBLE - HALFWAY OPTIONS AND ONE CARE (MEDICARE REPLACEMENT/ADV ANTAGE - HMO) Avelina Hernandez [id number] Avelina Hernandez Notes Date Note Type Note [...] .................. .................. .................. .................. .................. .................. ............... Family Consultant Note From Mert Markham: Pt caox3 answers [...] for tetanus shot and possible IV antibiotics. [facility] orders cipro administered as noted. Pt states she will drive herself to [facility]. Red flags and pt education discussed. .................. .................. .................. .................. .................. .................. .................. ............... Disposition: Hui AGRAWAL MD [address] [facility],[address], [place], [address], [email or web address] 12/22/2022 15:52:04 OBGyn Episode No OBEpisode recorded.
--- OUTSIDE RECORDS SUMMARY | 2024-10-09 09:42 | XMS_ITS | Clinical Summary ---
Author Organization [facility] Address [address] [place] [address] Care Team Providers Care Scout Professional Sports Name Role Phone Trinity Estrella MD Primary Care Provider [phone] Surgical History Surgery Date Site/Laterality Comments COLONOSCOPY 05/03/2007 PROCEDURE: [place] COLONOSCOPY FLX DX W/COLLJ SPEC WHEN PFRMD; COMMENT: Neg/inc to 40 cm. SECTION PROCEDURE: [place] DELIVERY ONLY; COMMENT: x2 TUBAL LIGATION PROCEDURE: [...] - 2023-2 5 season) 2024 Influenza Vaccine (Season Ended) 2025 HIB Vaccines Aged Out No longer eligi [...] age to complete this topic Care Teams Scout Professional Sports Relationship Specialty Start Date End Date Trinity Estrella MD PCP - General Internal Medicine 05/26/20
--- OUTSIDE RECORDS SUMMARY | 2024-10-09 09:42 | XMS_ITS | Clinical Summary ---
Author Organization [facility] Address [address] [place] [address] Care Team Providers Care Carpet Sewer Name Role Phone Elijah Pan DO Primary Care Provider [phone] Social History Tobacco Use Types Packs/Day Years [...] age to complete this topic Care Teams Carpet Sewer Relationship Specialty Start Date End Date Elijah Pan DO [address] [place] [id number] PCP - General Internal Medicine 01/29/19
== END 2024-10-09 11:30 | disposition home or self-care (01) ==
LOC: HO.HNS 09:17
PROVIDERS: PCP Internal Medicine; Visit Provider Physician Assistant
DX: Z98.890 Other specified postprocedural states (principal)
CPT/HCPCS: 99024

== ENCOUNTER → 2024-10-09 09:16 | Outpatient (BNVA) | payer OTHER, SELFPAY | PROVIDERS: PCP Internal Medicine; Visit Provider Physician Assistant | DX: Z47.89 Encounter for other orthopedic aftercare (principal); Z98.890 Other specified postprocedural states | CPT/HCPCS: 99212 ==

== ENCOUNTER 2024-12-17 09:00 | Outpatient (RCR) | payer OTHER, SELFPAY ==
--- NOTE | 2024-10-15 13:14 | MHC.PT.EP ---
[facility] [place] [facility] [place] [facility] [place] Office [address] Marii Ruff [address] [phone] F: [phone] F: [phone] F: [phone] F: [phone] Physical Therapy Plan of Care Date of Evaluation: 10/15/24 Date of Surgery: Diagnosis: urgency of urination cervical radiculopathy Assessment: 54 y/o female referred to Pelvic Floor PT with urgency of urination. Pt c/c UI that occurs throughout the day that is worse with exertion. Also notes long hx of constipation and her OB told her she has bladder prolapse. Pt consented to Pelvic floor assessment and will perform next visit d/t time constraints. Currently she presents with poor breathing mechanics, upregulated nervous system, poor load transfer management, poor abdominal/ hip strength, and impaired postural awareness. Educated pt on pelvic floor anatomy and function with 3D model, constipation management, ILU massage, and diaphragmatic breathing. Recommend PT 1x/week for 5 weeks to address impairments, implement HEP, and optimize functional mobility. Frequency and Duration: The patient will be seen 1x/week for 5 weeks Short Term Goals: 3 weeks I with HEP Pt will demonstrate proper diaphragmatic breathing to faciliate downregulation of nervous system and improvement pressure managemnet Alf Goals: 5 weeks I with HEP and self management of sx Pt to reduce # of episodes of ILDA during the day by 50% to help improve quality of life and reduce pad usage. Pt to be independent with her final HEP for PFM in order to help maintain gains made in therapy. Treatment Plan: Modalities to reduce pain, spasms and effusion. Manual therapy to restore motion and function. Therapeutic exercise to improve strength and flexibility. Neuromuscular re-education for posture and balance. Therapeutic activities to return to functional activities of daily living. Electronically signed by: Please sign and return to therapist. Thank you for your referral.
--- NOTE | 2024-12-17 10:06 | MHC.PT.DC ---
[facility] [place] [facility] [place] [facility] [place] [facility] [address] Marii Ruff [address] [phone] F: [phone] F: [phone] F: [phone] F: [phone] Physical Therapy Discharge Report Diagnosis: urgency of urination cervical radiculopathy Date of Surgery: Date of Evaluation: 10/15/24 Date of Discharge: 12/17/24 Treatments to Date: 6 Cancellations to Date: 1 No Shows to Date: 0 Discharge Status: Improved Function Independent with HEP Discharge Summary: Pt has made progress with physical therapy with improved body awareness, improved pelvic floor coordination and awareness, and I with HEP. She has less UI, however notes leakage returns at times of high levels of stress. Reviewed looking [facility] mental health therapy to assist with stress level management as this could also help decrease episodes of UI if it occur with high stress times. At this time, she is appropriate for d/c to I HEP. No further questions at this time Electronically signed by: Mihaela Boston PT Please sign and return to therapist. Thank you for your referral.
== END 2024-12-17 10:07 | disposition home or self-care (01) ==
LOC: HO.PT 09:00
PROVIDERS: PCP Internal Medicine; Visit Provider Urology
DX: R39.15 Urgency of urination (principal); M54.12 Radiculopathy, cervical region
CPT/HCPCS: 97112; 97140; 97162; 97535

== ENCOUNTER 2025-03-03 09:03 | Outpatient (AMB) | payer OTHER, SELFPAY ==
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
--- OUTSIDE RECORDS SUMMARY | 2025-03-03 09:24 | XMS_ITS | Clinical Summary ---
Author Organization [facility] Address [address] [place] [phone] Care Team Providers Care Copier Field Service Technician Name Role Phone Trinity Estrella MD Primary Care Provider [phone] Surgical History Surgery Date Site/Laterality Comments COLONOSCOPY 05/03/2007 PROCEDURE: [place] COLONOSCOPY FLX DX W/COLLJ SPEC WHEN PFRMD; COMMENT: Neg/inc to 40 cm. SECTION PROCEDURE: [place] DELIVERY ONLY; COMMENT: x2 TUBAL LIGATION PROCEDURE: [...] Smear 1993 Colorectal Cancer Screening: Colonoscopy 06/10/2022 HIV Screening 06/10/2022 Hepatitis C Screening 06/10/2022 Social Influencers of Health Screening 06/10/2022 Pneumococcal Vaccine: 50+ Ye ars (1 of 1 - PCV) 2022 Zoster Vaccines (1 of 2) 2022 COVID-19 Vaccine (1 - 2023-2 5 season) 2024 Depression Screening 07/09/2024 Influenza Vaccine (#1) 2025 HIB Vaccines Aged Out No longer [...] age to complete this topic Meningococcal B Vaccine Aged Out No l onger eligible based on patient's age to complete this topic RSV Immunization Patients Un drew 20 months Aged Out No longer eligible b ased on patient's age to complete this topic Varicella Vaccines Aged Out No longer eligible based on patient's age to complete this topic Care Teams Copier Field Service Technician Relationship Specialty Start Date End Date Trinity Estrella MD PCP - General Internal Medicine 05/26/20
--- OUTSIDE RECORDS SUMMARY | 2025-03-03 09:24 | XMS_ITS | Clinical Summary ---
Author Organization [facility] Address [address] [place] [address] Care Team Providers Care Central Station Operator Name Role Phone Elijah Pan DO Primary Care Provider Social History Tobacco Use Types Packs/Day Years [...] (1 of 2) 2022 Influenza Vaccine (#1) 2025 Pneumococcal Vaccine Aged Out No long er eligible based on patient's age to complete this topic RSV Ped < 20 months Aged Out No longe r eligible based on patient's age to complete this topic Care Teams Central Station Operator Relationship Specialty Start Date End Date Elijah Pan DO [address] [place] [id number] PCP - General Internal Medicine 01/29/19
== END 2025-03-03 09:37 | disposition home or self-care (01) ==
LOC: HO.HSM 09:04
PROVIDERS: PCP Internal Medicine; Visit Provider Registered Nurse
DX: F90.9 Attention-deficit hyperactivity disorder, unspecified type (principal); G43.909 Migraine, unspecified, not intractable, without status migrainosus
CPT/HCPCS: 99214

== ENCOUNTER → 2025-03-03 09:03 | Outpatient (BNVA) | payer OTHER, SELFPAY | PROVIDERS: PCP Internal Medicine; Visit Provider Registered Nurse | DX: G43.909 Migraine, unspecified, not intractable, without status migrainosus (principal); F90.9 Attention-deficit hyperactivity disorder, unspecified type | CPT/HCPCS: 99212 ==